=== PATIENT | female | born 1940 | race Caucasian/White ===

== ENCOUNTER → 2017-03-04 | Outpatient (CLI) | payer MEDICARE, OTHER ==
[2016-06-18 09:00] VITALS: BP 130/62
[~2017-03-04] MED LIST: ALBU18HF IH; AMLO10TA4 PO; CIPR500T94 PO; FLUT1DIS IH; FURO-69 PO; GLIM4TAB PO; HYDR-2867 PO; LORA10TA3 PO; LOSA100T6 PO; MONT10TA9 PO; ONDA4TAB10 PO; POTA10TA31 PO; lidocaine patch
--- NOTE | 2017-03-04 16:12 | RAD ---
DATE: 03/04/2017 EXAM: MAMMO JESSIKA SCREENING BILATERAL HISTORY: Asymptomatic screening mammogram. COMPARISON: Mammogram 02/20/2016, 06/21/2014 This study was interpreted with the benefit of Computerized Aided Detection (CAD). The breast parenchyma shows scattered fibroglandular densities. Breast parenchyma level B. FINDINGS: Bilateral CC and MLO views as well as tomosynthesis was performed. No suspicious medical calcifications, masses or areas of architectural distortion. Findings are stable from the prior mammogram. IMPRESSION: Negative bilateral mammogram. BI-RADS CATEGORY: 1 NEGATIVE RECOMMENDED FOLLOW-UP: 12M 12 MONTH FOLLOW-UP PQRS compliance statement: Patient information was entered into a reminder system with a target due date 03/04/2018 for the next mammogram. Mammography is a sensitive method for finding small breast cancers, but it does not detect them all and is not a substitute for careful clinical examination. A negative mammogram does not negate a clinically suspicious finding and should not result in delay in biopsying a clinically suspicious abnormality. "Our facility is accredited by the [employer] Mammography Program."
== END | disposition home or self-care (01) ==
LOC: MAMMO 12:14
PROVIDERS: ATTEND Family Medicine
DX: Z12.31 Encounter for screening mammogram for malignant neoplasm of breast (principal)
CPT/HCPCS: 77063; G0202; 77067

== ENCOUNTER → 2017-06-26 | Outpatient (CLI) | payer MEDICARE, OTHER ==
[2016-06-18 09:00] VITALS: BP 130/62
[~2017-06-26] MED LIST changes: +0.9 % SODIUM CHLORIDE 10 ML VIAL ONE; +DEXAMETHASONE SOD PHOS 4 MG/ML VIAL ONE; +IOHEXOL 300 MG/ML 50 ML VIAL. ONE; +LIDOCAINE 1% PF 30 ML VIAL. ONE
== END | disposition home or self-care (01) ==
LOC: SURG 12:36
PROVIDERS: ATTEND Anesthesiology Pain Medicine
DX: M54.12 Radiculopathy, cervical region (principal); J45.909 Unspecified asthma, uncomplicated; I10 Essential (primary) hypertension; E11.9 Type 2 diabetes mellitus without complications; D64.9 Anemia, unspecified; Z96.653 Presence of artificial knee joint, bilateral; Z87.01 Personal history of pneumonia (recurrent)
CPT/HCPCS: 62321; 82947; J1100; J2001; Q9967

== ENCOUNTER → 2017-07-14 | Outpatient (CLI) | payer MEDICARE, OTHER ==
[2016-06-18 09:00] VITALS: BP 130/62
[~2017-07-14] MED LIST changes: -0.9 % SODIUM CHLORIDE 10 ML VIAL ONE; -DEXAMETHASONE SOD PHOS 4 MG/ML VIAL ONE; -IOHEXOL 300 MG/ML 50 ML VIAL. ONE; -LIDOCAINE 1% PF 30 ML VIAL. ONE
--- NOTE | 2017-07-14 17:57 | RAD ---
EXAM: Left lower extremity venous Doppler sonogram. HISTORY: Swelling. TECHNIQUE: Santos scale and color Doppler sonographic evaluation of the left lower extremity veins with spectral waveform analysis was performed. FINDINGS: There is normal color flow, normal compressibility and there are normal spectral waveforms in the common femoral, superficial femoral, popliteal, posterior tibial and greater saphenous veins. IMPRESSION: No Doppler evidence of lower extremity venous thrombosis. Electronically signed by: Chichi Gonsalez MD (07/14/2017 5:54 PM) [place] [id number]
--- NOTE | 2017-07-14 18:39 | RAD ---
EXAM: Chest, 2 views. HISTORY: Shortness of air. COMPARISON: 08/01/2015 FINDINGS: Frontal and lateral views of the chest are obtained. There is bilateral lower lobe opacity likely due to atelectasis. There is no consolidation, effusion or pneumothorax. There is stable mild enlargement of the cardiac silhouette. There is a left shoulder arthroplasty. There are degenerative changes throughout the thoracic spine. There are cholecystectomy clips. There is minimal anterior wedging of an upper to mid thoracic vertebral body. IMPRESSION: Suspected bilateral lower lobe atelectasis. Electronically signed by: Chichi Gonsalez MD (07/14/2017 6:35 PM) [facility]
== END | disposition home or self-care (01) ==
LOC: US 16:17
PROVIDERS: ATTEND Family Medicine
DX: I51.7 Cardiomegaly (principal); M79.605 Pain in left leg; M79.89 Other specified soft tissue disorders; M47.894 Other spondylosis, thoracic region; Z96.612 Presence of left artificial shoulder joint; Z90.49 Acquired absence of other specified parts of digestive tract
CPT/HCPCS: 71020; 93971

== ENCOUNTER → 2017-07-31 | Outpatient (CLI) | payer MEDICARE, OTHER ==
[2016-06-18 09:00] VITALS: BP 130/62
== END | disposition home or self-care (01) ==
LOC: SURG 14:03
PROVIDERS: ATTEND Anesthesiology Pain Medicine
DX: M54.12 Radiculopathy, cervical region (principal); M54.16 Radiculopathy, lumbar region; M48.02 Spinal stenosis, cervical region; I10 Essential (primary) hypertension; E11.9 Type 2 diabetes mellitus without complications; D64.9 Anemia, unspecified
CPT/HCPCS: 99214

== ENCOUNTER → 2017-08-04 | Outpatient (CLI) | payer MEDICARE, OTHER ==
[2016-06-18 09:00] VITALS: BP 130/62
--- NOTE | 2017-08-04 15:11 | CARD ---
APPROVED REPORT EXAM: Two-dimensional and M-mode echocardiogram with Doppler and color Doppler. Other Information Quality : AverageHR: 79bpm INDICATION Dyspnea 2D DIMENSIONS Left Atrium(2D)4.0 (1.6-4.0cm)IVSd0.9 (0.7-1.1cm) Aortic Root(2D)2.9 (2.0-3.7cm)LVDd5.8 (3.9-5.9cm) LVOT Diameter1.8 (1.8-2.4cm)PWd1.1 (0.7-1.1cm) LVDs4.0 (2.5-4.0cm)FS (%) 31.7 % SV97.4 mlLVEF(%)58.9 (>50%) Aortic Valve AoV Peak Scott.195.7cm/sAoV VTI47.9cm AO Peak GR.15.3mmHgLVOT Peak Scott.171.3cm/s AO Mean GR.8mmHgAVA (VMAX)2.15cm2 Mitral Valve MV E Gbodeymy028.8cm/sMV DECEL DMRL888xi MV A Dnpixsav532.5cm/sE/A Ratio1.2 Pulmonary Valve PV Peak Waymxevx374.8cm/sPV Peak Grad.9mmHg LEFT VENTRICLE The left ventricle is normal size. There is normal left ventricular wall thickness. The left ventricu lar systolic function is normal and the ejection fraction is within normal range. EF 65-70% There is normal LV segmental wall motion. The left ventricular diastolic function and filling is normal for ag e. RIGHT VENTRICLE The right ventricle is normal size. The right ventricular systolic function is normal. ATRIA The left atrium size is normal. The right atrium size is normal. The interatrial septum is intact wit h no evidence for an atrial septal defect or patent foramen ovale as noted on 2-D or Doppler imaging. AORTIC VALVE The aortic valve is thickened but opens well. Doppler and Color Flow revealed no significant aortic r egurgitation. There is no significant aortic valvular stenosis. There is no aortic valvular vegetatio n. MITRAL VALVE The mitral valve is thickened but opens well. There is no evidence of mitral valve prolapse. There is no mitral valve stenosis. Doppler and Color-flow revealed trace mitral regurgitation. TRICUSPID VALVE The tricuspid valve is normal in structure and function. Doppler and Color Flow revealed no tricuspid valve regurgitation noted. There is no tricuspid valve prolapse or vegetation. There is no tricuspid valve stenosis. PULMONIC VALVE The pulmonary valve was not visualized well. Doppler and Color Flow revealed trace pulmonic valvular regurgitation. There is no pulmonic valvular stenosis. GREAT VESSELS The aortic root is normal in size. M-mode revealed an enlarged size and <50% collapse. PERICARDIAL EFFUSION There is no pleural effusion. There is no evidence of significant pericardial effusion. Critical Notification Critical Value: No <Conclusion> The left ventricular systolic function is normal and the ejection fraction is within normal range. EF 65-70% There is normal LV segmental wall motion.
== END | disposition home or self-care (01) ==
LOC: ECHO 13:45
PROVIDERS: ATTEND Family Medicine
DX: I10 Essential (primary) hypertension (principal); I34.0 Nonrheumatic mitral (valve) insufficiency; I37.1 Nonrheumatic pulmonary valve insufficiency
CPT/HCPCS: 93306

== ENCOUNTER → 2017-08-10 | Outpatient (CLI) | payer MEDICARE, OTHER ==
[2016-06-18 09:00] VITALS: BP 130/62
--- NOTE | 2017-08-10 16:56 | RAD ---
Indication: Asthma and cough Technique: PA and lateral views of the chest Comparison: Previous study from 07/14/2017 Findings: Patient is slightly rotated to the right. Heart is mildly enlarged in size. Lungs are hyperinflated. No focal consolidations in the lungs. No pneumothorax or pleural effusion. Status post total left shoulder arthroplasty. Multilevel degenerative disc disease in the thoracic spine. Impression: Findings of COPD. No acute cardiopulmonary process.
== END | disposition home or self-care (01) ==
LOC: RAD 16:33
PROVIDERS: ATTEND Family Medicine
DX: J45.20 Mild intermittent asthma, uncomplicated (principal); J44.9 Chronic obstructive pulmonary disease, unspecified; I51.7 Cardiomegaly; M47.894 Other spondylosis, thoracic region; Z96.612 Presence of left artificial shoulder joint
CPT/HCPCS: 71020

== ENCOUNTER → 2017-08-11 | Outpatient (CLI) | payer MEDICARE, OTHER ==
[2016-06-18 09:00] VITALS: BP 130/62
--- NOTE | 2017-08-11 13:59 | RAD ---
Indication: Shortness of breath for 2 weeks. The patient was administered 9.6 mCi of xenon-133 gas and inspiratory, equilibrium and washout views were obtained over the chest. Next, the patient was administered 5.5 mCi of technetium 99m MAA intravenously and imaging over the chest was performed at multiple obliquities. The ventilation portion of the exam demonstrates fairly homogeneous ventilation of both lungs. No ventilation defects are seen. There appears to be normal washout. The perfusion portion of the exam demonstrates homogeneous perfusion to both lungs. No pleural-based perfusion defects are seen. Impression: Normal ventilation and perfusion lung scan.
== END | disposition home or self-care (01) ==
LOC: NM 12:38
PROVIDERS: ATTEND Family Medicine
DX: J44.9 Chronic obstructive pulmonary disease, unspecified (principal)
CPT/HCPCS: 78582; 96374; A9540; A9558

== ENCOUNTER → 2018-04-07 | Outpatient (CLI) | payer MEDICARE, OTHER ==
[2016-06-18 09:00] VITALS: BP 130/62
--- NOTE | 2018-04-07 14:12 | RAD ---
Bone densitometry 04/07/2018 12:27 PM Indication: OSTEOPENIA Comparison Study: Bone densitometry September 27, 2015.. Discussion: Bone Densitometry was performed with dual photon absorption of the lumbar spine and proximal left femur Lumbar Spine: Bone average density is 1.106g/cm2 for L1-L4. T-Score is -0.6. (Prior T score -0.6) Left femoral neck: Bone average density is 0.739 g/cm2. T-Score is -2.2. (Prior T score -2.3) IMPRESSION: Osteopenia of the left femoral neck and lumbar spine. Bone mineral density in these regions is essentially unchanged from most recent comparison exam Note: Definitions established by the World Health Organization: Normal: T-score is -1.0 or above. Osteopenia: T-score is between -1.0 and -2.5. Osteoporosis: T-score is -2.5 or below. Electronically signed by: Dylan Salvador MD (04/07/2018 2:08 PM) [id number]
== END | disposition home or self-care (01) ==
LOC: DXRAD 12:14
PROVIDERS: ATTEND Family Medicine
DX: M85.89 Other specified disorders of bone density and structure, multiple sites (principal); E11.9 Type 2 diabetes mellitus without complications; E78.5 Hyperlipidemia, unspecified; J44.9 Chronic obstructive pulmonary disease, unspecified; I11.0 Hypertensive heart disease with heart failure; I50.9 Heart failure, unspecified; Z90.49 Acquired absence of other specified parts of digestive tract; Z90.710 Acquired absence of both cervix and uterus; Z88.8 Allergy status to other drugs, medicaments and biological substances; Z88.5 Allergy status to narcotic agent; Z88.6 Allergy status to analgesic agent
CPT/HCPCS: 77080

== ENCOUNTER → 2018-05-19 | Outpatient (CLI) | payer MEDICARE, OTHER ==
[2016-06-18 09:00] VITALS: BP 130/62
[~2018-05-19] MED LIST changes: -LOSA100T6 PO; +LOSA100T7 PO
--- NOTE | 2018-05-20 08:42 | RAD ---
DATE: 05/19/2018 EXAM: DIGITAL SCREEN BILAT W/CAD HISTORY: Screening COMPARISON: 02/20/2016 and 03/04/2017 screening mammography exams This study was interpreted with the benefit of Computerized Aided Detection (CAD ). Breast Density: SCATTERED The breast parenchyma shows scattered fibroglandular densities. Breast parenchyma level B. FINDINGS: Benign calcifications are present. No mass or distortion. No suspicious calcification cluster. Parenchymal distribution is stable. IMPRESSION: BI-RADS CATEGORY: 2 BENIGN FINDING(S) RECOMMENDED FOLLOW-UP: PQRS compliance statement: Patient information was entered into a reminder system with a target due date 1 year for the next mammogram. Mammography is a sensitive method for finding small breast cancers, but it does not detect them all and is not a substitute for careful clinical examination. A negative mammogram does not negate a clinically suspicious finding and should not result in delay in biopsying a clinically suspicious abnormality. "Our facility is accredited by the [employer] Mammography Program." ASAD
== END | disposition home or self-care (01) ==
LOC: MAMMO 13:28
PROVIDERS: ATTEND Family Medicine
DX: Z12.31 Encounter for screening mammogram for malignant neoplasm of breast (principal); I11.0 Hypertensive heart disease with heart failure; I50.32 Chronic diastolic (congestive) heart failure; E11.9 Type 2 diabetes mellitus without complications; E78.5 Hyperlipidemia, unspecified; J44.9 Chronic obstructive pulmonary disease, unspecified; K21.9 Gastro-esophageal reflux disease without esophagitis; Z96.653 Presence of artificial knee joint, bilateral; Z90.710 Acquired absence of both cervix and uterus; Z90.49 Acquired absence of other specified parts of digestive tract; Z88.5 Allergy status to narcotic agent; Z88.6 Allergy status to analgesic agent; Z88.8 Allergy status to other drugs, medicaments and biological substances
CPT/HCPCS: 77067

== ENCOUNTER 2018-08-29 09:27 | Emergency (ER) | payer MEDICARE, OTHER ==
[2016-06-18 09:00] VITALS: BP 130/62
[~2018-08-29] VITALS: Ht 152.4 cm; Wt 86.7 kg
[~2018-08-29 09:27] MED LIST changes: -ALBU18HF IH; +ALBU2.5V8 IH; +LOSA100T14 PO; -LOSA100T7 PO
[2018-08-29] MEDS ORDERED: IPRATRPIUM/ALBUTEROL 0.5/2.5MG 3 ML NEBU. NEB ONE (10:00)
[2018-08-29] MEDS ORDERED: methylPREDNISolone SOD SUCC PF 125 MG/2 ML VIAL. IV ONE (10:00)
[2018-08-29 10:18] LABS: BASO # 0.1 x10^3/uL (0.0-0.2); BASO % 1 % (0-3); EOS # 0.2 x10^3/uL (0.0-0.7); EOS % 3 % (0-3); HEMOGLOBIN 10.7 g/dL (12.0-15.5); LYMPH # 0.9 x10^3/uL (1.0-4.8); LYMPH % 12 % (24-48); MEAN CORPUSCULAR HEMOGLOBIN 27 pg (25-35); MEAN CORPUSCULAR HGB CONC 33 g/dL (31-37); MEAN CORPUSCULAR VOLUME 84 fL (79-100); MONO # 0.8 x10^3/uL (0.0-1.1); MONO % 9 % (0-9); NEUT # 6.1 x10^3uL (1.8-7.7); NEUT % 75 % (31-73); PLATELET COUNT 208 x10^3/uL (140-400); RED BLOOD COUNT 3.93 x10^6/uL (3.50-5.40); WHITE BLOOD COUNT 8.1 x10^3/uL (4.0-11.0)
[2018-08-29 10:36] LABS: ALBUMIN 3.1 g/dL (3.4-5.0); CALCIUM 8.8 mg/dL (8.5-10.1); CREATININE 1.4 mg/dL (0.6-1.0); GFR 36.4; POTASSIUM 3.3 mmol/L (3.5-5.1); TOTAL BILIRUBIN 0.4 mg/dL (0.2-1.0); TOTAL PROTEIN 6.3 g/dL (6.4-8.2)
--- NOTE | 2018-08-29 10:37 | RAD ---
CHEST PA LATERAL History: cough x 4-5 days, hx of asthma. Comparison: August 10, 2017 Heart size: Mildly enlarged, unchanged. Elin/mediastinum: Calcified aorta, appears similar. Lungs: Hyperaeration and appears similar. No consolidating infiltrate. Mild basilar markings are stable, likely fibrosis or atelectasis. No dense airspace consolidation. Pleura: No evidence of pleural effusion. Pneumothorax: None visualized Bones: Degenerative changes of the thoracic spine. Miscellaneous: There has been placement of a dual-lead pacemaker. Impression: Similar appearance as prior study, no consolidating infiltrate. Electronically signed by: Steven Perez MD (08/29/2018 10:32 AM) [facility] [place]
[2018-08-29 10:58] LABS: INFLUENZA A PATIENT NEGATIVE (NEGATIVE); INFLUENZA B PATIENT NEGATIVE (NEGATIVE)
[2018-08-29] MEDS ORDERED: METH4TAB2 PO (11:42)
[2018-08-29] MEDS ORDERED: HYDR115S2 PO (11:42)
--- NOTE | 2018-08-29 11:42 | PHYS DOC ---
Past History Past Medical History: Arthritis, Asthma, Depression, Diabetes, GERD, Hypertension Past Surgical History: Appendectomy, Cholecystectomy, , Hysterectomy, Knee Replacement Alcohol Use: None Drug Use: None Adult General Chief Complaint Chief Complaint: SHORTNESS OF BREATH [facility] HPI Patient is a 77 year old female who presents with cough and shortness of breath. Patient states she had productive cough with yellow sputum that started 5 days ago and seen at urgent care and treated with amoxicillin and Tessalon. Patient states her cough is not productive anymore complains of increasing cough and shortness of breath and unable to sleep. Patient complains of chest soreness and subjective fever without vomiting and diarrhea. Review of Systems Review of Systems Constitutional: Reports subjective fever Eyes: Denies change in visual acuity, redness, or eye pain [] HENT: Reports nasal congestion and sore throat Respiratory: Reports cough and shortness of breath Cardiovascular: No additional information not addressed in HPI [] GI: Denies abdominal pain, nausea, vomiting, bloody stools or diarrhea [] : Denies dysuria or hematuria [] Musculoskeletal: Denies back pain or joint pain [] Integument: Denies rash or skin lesions [] Neurologic: Denies headache, focal weakness or sensory changes [] Endocrine: Denies polyuria or polydipsia [] All other systems were reviewed and found to be within normal limits, except as documented in this note. Current Medications Current Medications Current Medications Medications (Trade) Dose Ordered Sig/[facility] Start Time Stop Time Status Last Admin Dose Admin Albuterol/ Ipratropium (Duoneb) 3 ml 1X ONCE 08/29/18 10:00 08/29/18 10:01 DC 08/29/18 10:03 3 ML Methylprednisolone Sodium Succinate (SOLU-Medrol 125MG VIAL) 125 mg 1X ONCE 08/29/18 10:00 08/29/18 10:01 DC 08/29/18 10:25 125 MG Allergies Allergies Allergies Coded Allergies Type Severity Reaction Last Updated Verified ezetimibe Allergy Severe Itching 06/17/15 No simvastatin Allergy Severe Itching 06/17/15 No felodipine Allergy Intermediate Rash 06/17/15 Yes morphine Allergy Intermediate Swelling 06/17/15 Yes theophylline Allergy Intermediate Rash 06/17/15 Yes nitroglycerin Adverse Reaction Intermediate sensetive to NTG (sweating, increased HR) 08/01/15 No Physical Exam Physical Exam Constitutional: Well developed, well nourished, moderate distress, non-toxic appearance. [] HENT: Normocephalic, atraumatic, bilateral external ears normal, pharyngeal erythema, oropharynx moist, no oral exudates, nose normal. [] Eyes: PERRLA, EOMI, conjunctiva normal, no discharge. [] Neck: Normal range of motion, no tenderness, supple, no stridor. [] Cardiovascular:Heart rate regular rhythm, no murmur [] Lungs & Thorax: Mild respiratory distress with intercostal retraction, diffuse rhonchi.[] Abdomen: Bowel sounds normal, soft, no tenderness, no masses, no pulsatile masses. [] Skin: Warm, dry, no erythema, no rash. [] Back: No tenderness, no CVA tenderness. [] Extremities: No tenderness, no cyanosis, no clubbing, ROM intact, no edema. [] Neurologic: Alert and oriented X 3, normal motor function, normal sensory function, no focal deficits noted. [] Psychologic: Affect normal, judgement normal, mood normal. [] Current Patient Data Vital Signs Vital Signs Date Time Temp Pulse Resp B/P (MAP) Pulse Ox O2 Delivery O2 Flow Rate FiO2 08/29/18 10:05 99 Room Air Lab Results Laboratory Tests Test 08/29/18 10:00 08/29/18 10:25 White Blood Count 8.1 x10^3/uL (4.0-11.0) Red Blood Count 3.93 x10^6/uL (3.50-5.40) Hemoglobin 10.7 g/dL (12.0-15.5) L Hematocrit 33.0 % (36.0-47.0) L Mean Corpuscular Volume 84 fL (79-100) Mean Corpuscular Hemoglobin 27 pg (25-35) Mean Corpuscular Hemoglobin Concent 33 g/dL (31-37) Red Cell Distribution Width 16.0 % (11.5-14.5) H Platelet Count 208 x10^3/uL (140-400) Neutrophils (%) (Auto) 75 % (31-73) H Lymphocytes (%) (Auto) 12 % (24-48) L Monocytes (%) (Auto) 9 % (0-9) Eosinophils (%) (Auto) 3 % (0-3) Basophils (%) (Auto) 1 % (0-3) Neutrophils # (Auto) 6.1 x10^3uL (1.8-7.7) Lymphocytes # (Auto) 0.9 x10^3/uL (1.0-4.8) L Monocytes # (Auto) 0.8 x10^3/uL (0.0-1.1) Eosinophils # (Auto) 0.2 x10^3/uL (0.0-0.7) Basophils # (Auto) 0.1 x10^3/uL (0.0-0.2) Sodium Level 145 mmol/L (136-145) Potassium Level 3.3 mmol/L (3.5-5.1) L Chloride Level 104 mmol/L (98-107) Carbon Dioxide Level 30 mmol/L (21-32) Anion Gap 11 (6-14) Blood Urea Nitrogen 42 mg/dL (7-20) H Creatinine 1.4 mg/dL (0.6-1.0) H Estimated GFR (Cockcroft-Gault) 36.4 BUN/Creatinine Ratio 30 (6-20) H Glucose Level 191 mg/dL (70-99) H Lactic Acid Level 0.9 mmol/L (0.4-2.0) Calcium Level 8.8 mg/dL (8.5-10.1) Total Bilirubin 0.4 mg/dL (0.2-1.0) Aspartate Amino Transferase (AST) 17 U/L (15-37) Alanine Aminotransferase (ALT) 19 U/L (14-59) Alkaline Phosphatase 121 U/L (46-116) H NX-Fqb-Z-Type Natriuretic Peptide 986 pg/mL (0-449) H Total Protein 6.3 g/dL (6.4-8.2) L Albumin 3.1 g/dL (3.4-5.0) L Albumin/Globulin Ratio 1.0 (1.0-1.7) Influenza Type A (Rapid) Negative (NEGATIVE) Influenza Type B (Rapid) Negative (NEGATIVE) EKG EKG H interpreted by me. EKG at 0 942 showed sinus tachycardia at rate of 107, left axis deviation, nonspecific intraventricular block, poor R-wave progress in anterior leads, no acute ST and T-wave abnormalities Radiology/Procedures Radiology/Procedures [address] [address] IMAGING REPORT Signed PATIENT: JOCELYN BECKHAM ACCOUNT: [id number] : 1940 LOCATION: ER AGE: 77 SEX: F EXAM STATUS: REG ER ORD. PHYSICIAN: DENNISE MAGALLANES MD REASON: cough and shortness of breath PROCEDURE: CHEST PA & LATERAL CHEST PA LATERAL History: cough x 4-5 days, hx of asthma. Comparison: August 10, 2017 Heart size: Mildly enlarged, unchanged. Elin/mediastinum: Calcified aorta, appears similar. Lungs: Hyperaeration and appears similar. No consolidating infiltrate. Mild basilar markings are stable, likely fibrosis or atelectasis. No dense airspace consolidation. Pleura: No evidence of pleural effusion. Pneumothorax: None visualized Bones: Degenerative changes of the thoracic spine. Miscellaneous: There has been placement of a dual-lead pacemaker. Impression: Similar appearance as prior study, no consolidating infiltrate. Electronically signed by: Steven Perez MD (08/29/2018 10:32 AM) [facility] DICTATED AND SIGNED BY: STEVEN PEREZ MD DATE: 08/29/18 1026 CC: FANY TAN MD; DENNISE MAGALLANES MD ~ Course & Med Decision Making Course & Med Decision Making Pertinent Labs and Imaging studies reviewed. (See chart for details) Evaluation of patient in ER showed 77-year-old female patient with cough and congestion for 5 days that did not get better with amoxicillin given at urgent care. Patient had moderate cough. Chest x-ray did not show infiltration. Labs was unremarkable except for potassium of 3.3 and mild elevation of BNP. Patient treated with DuoNeb and Solu-Medrol and felt better. Plan discharge patient home with diagnosis of acute bronchitis and prescription of Tussionex. Dragon Disclaimer Dragon Disclaimer This electronic medical record was generated, in whole or in part, using a voice recognition dictation system. Departure Departure: Impression: Primary Impression: Acute bronchitis Additional Impressions: Cough Chronic renal insufficiency Anemia Asthma exacerbation Hypokalemia CHF (congestive heart failure) Disposition: HOME, SELF-CARE (at 1139) Condition: IMPROVED Referrals: FANY TAN MD (PCP) Patient Instructions: Acute Bronchitis, Asthma Attacks, Prevention, Cough, Adult Additional Instructions: Continue antibiotic Follow-up with your primary care physician in 3-5 days Return to ER if not getting better Scripts Hydrocodone/Chlorphen P-Stirex (Tussionex Pennkinetic Susp) 115 Ml Jackelyn.er.12h 5 ML PO BID for cough and congestion, #60 ML Prov: DENNISE MAGALLANES MD 08/29/18 Methylprednisolone (MEDROL) 4 Mg Tab.ds.pk 1 PKG PO UD for inflammation, #1 PKG Prov: DENNISE MAGALLANES MD 08/29/18 Problem Qualifiers DENNISE MAGALLANES MD Aug 29, 2018 11:42
== END 2018-08-29 13:00 | disposition home or self-care (01) ==
LOC: ER 09:27
DX: J20.9 Acute bronchitis, unspecified (principal); I13.0 Hypertensive heart and chronic kidney disease with heart failure and stage 1 through stage 4 chronic kidney disease, or unspecified chronic kidney disease; E11.22 Type 2 diabetes mellitus with diabetic chronic kidney disease; N18.9 Chronic kidney disease, unspecified; I50.9 Heart failure, unspecified; D64.9 Anemia, unspecified; J45.901 Unspecified asthma with (acute) exacerbation; E87.6 Hypokalemia; Z88.8 Allergy status to other drugs, medicaments and biological substances; Z88.5 Allergy status to narcotic agent
CPT/HCPCS: 36415; 71046; 80053; 83605; 83880; 85025; 87804; 93005; 94640; 96374; 99284; J2930; J7620

== ENCOUNTER → 2019-01-05 | Outpatient (CLI) | payer MEDICARE, OTHER ==
[2016-06-18 09:00] VITALS: BP 130/62
[~2019-01-05] MED LIST changes: +HYDR115S2 PO; +METH4TAB2 PO
[2019-01-05 09:40] LABS: ALBUMIN 3.6 g/dL (3.4-5.0); CALCIUM 9.5 mg/dL (8.5-10.1); CREATININE 1.4 mg/dL (0.6-1.0); GFR 36.3; POTASSIUM 3.8 mmol/L (3.5-5.1); TOTAL BILIRUBIN 0.4 mg/dL (0.2-1.0); TOTAL PROTEIN 7.1 g/dL (6.4-8.2)
== END | disposition home or self-care (01) ==
LOC: LAB 09:02
PROVIDERS: ATTEND Internal Medicine Cardiovascular Disease
DX: I10 Essential (primary) hypertension (principal)
CPT/HCPCS: 36415; 80053; 80061; 83880

== ENCOUNTER 2019-02-25 09:33 | Emergency (ER) | payer MEDICARE, OTHER ==
[~2019-02-25] VITALS: Ht 152.4 cm; Wt 86.7 kg
[~2019-02-25 09:33] MED LIST changes: +MONT10TA80 PO; -MONT10TA9 PO
[2019-02-25] MEDS ORDERED: TORS20TA2 PO (10:07)
[2019-02-25] MEDS ORDERED: SUCR1TAB35 PO (10:07)
[2019-02-25] MEDS ORDERED: IV NORMAL SALINE 1,000ML 1,000 ML IV ONE (10:15)
--- NOTE | 2019-02-25 10:18 | PHYS DOC ---
Past History Past Medical History: Arthritis, Asthma, Depression, Diabetes, GERD, Hypertension Past Surgical History: Appendectomy, Cholecystectomy, , Hysterectomy, Knee Replacement Alcohol Use: None Drug Use: None Adult General Chief Complaint Chief Complaint: DIZZY/LIGHT HEADED HPI HPI 78-year-old female presents with dizziness and nausea. This is been intermittent for a bout 5 days. It started last Thursday. Yesterday, she had the most symptoms. She had dizziness that she describes as room spinning sensation as well as a persistent nausea all day. When she sat down and laid her head down for a while the dizziness would improve, but it came and went to the day. Today, she does not have dizziness, but does feel nauseous. She hasn't had episodes of dizziness like this in the past. She talked her PCP who could not see her and advised she come in for evaluation. The patient is very active and on her feet a lot. Her symptoms do get worse after she has been up and moving around too long. She denies shortness of breath, chest pain, diaphoresis, vomiting, diarrhea, abdominal pain. No recent changes in her medications. She has been eating and drinking normally. Review of Systems Review of Systems Constitutional: Denies fever or chills [] Eyes: Denies change in visual acuity, redness, or eye pain [] HENT: Denies nasal congestion or sore throat [] Respiratory: Denies cough or shortness of breath [] Cardiovascular: No additional information not addressed in HPI [] GI: Nausea. Denies abdominal pain, vomiting, bloody stools or diarrhea [] : Denies dysuria or hematuria [] Musculoskeletal: Denies back pain or joint pain [] Integument: Denies rash or skin lesions [] Neurologic: Dizziness. Denies headache, focal weakness or sensory changes [] Endocrine: Denies polyuria or polydipsia [] All other systems were reviewed and found to be within normal limits, except as documented in this note. Current Medications Current Medications Current Medications Medications (Trade) Dose Ordered Sig/[facility] Start Time Stop Time Status Last Admin Dose Admin Meclizine HCl (Antivert) 12.5 mg 1X STAT 02/25/19 10:09 02/25/19 10:10 UNV Ondansetron HCl (Zofran) 4 mg 1X ONCE 02/25/19 10:15 02/25/19 10:16 UNV Sodium Chloride 1,000 ml @ 1,000 mls/hr 1X ONCE 02/25/19 10:15 02/25/19 11:14 Allergies Allergies Allergies Coded Allergies Type Severity Reaction Last Updated Verified ezetimibe Allergy Severe Itching 06/17/15 No simvastatin Allergy Severe Itching 06/17/15 No felodipine Allergy Intermediate Rash 06/17/15 Yes morphine Allergy Intermediate Swelling 06/17/15 Yes theophylline Allergy Intermediate Rash 06/17/15 Yes nitroglycerin Adverse Reaction Intermediate sensetive to NTG (sweating, incre ased HR) 08/01/15 No Physical Exam Physical Exam Constitutional: Well developed, well nourished, no acute distress, non-toxic appearance. [] HENT: Normocephalic, atraumatic, bilateral external ears normal, oropharynx moist, no oral exudates, nose normal. Right tympanic membrane dull, with effusion, no erythema or bulging. Left tympanic membrane normal.[] Eyes: PERRLA, EOMI, conjunctiva normal, no discharge. [] Neck: Normal range of motion, no tenderness, supple, no stridor. [] Cardiovascular:Heart rate regular rhythm, no murmur [] Lungs & Thorax: Bilateral breath sounds clear to auscultation [] Abdomen: Bowel sounds normal, soft, no tenderness, no masses, no pulsatile masses. [] Skin: Warm, dry, no erythema, no rash. [] Back: No tenderness, no CVA tenderness. [] Extremities: No tenderness, no cyanosis, no clubbing, ROM intact, no edema. [] Neurologic: Alert and oriented X 3, normal motor function, normal sensory function, no focal deficits noted. [] Psychologic: Affect normal, judgement normal, mood normal. [] Current Patient Data Vital Signs Vital Signs Date Time Temp Pulse Resp B/P (MAP) Pulse Ox O2 Delivery O2 Flow Rate FiO2 02/25/19 09:57 97.8 94 20 97 Room Air EKG EKG Sinus rhythm, appears paced, rate 73, leftward axis, no ST elevations or depressions, likely pacer spikes.[] Radiology/Procedures Radiology/Procedures [] Course & Med Decision Making Course & Med Decision Making Pertinent Labs and Imaging studies reviewed. (See chart for details) The patient's labs are remarkable for an elevated creatinine and BUN. Creatinine is 1.9. Her baseline in the chart is around 1.4. her EKG is unremarkable. The patient does have a pacemaker. Given the patient 1 L normal saline and 4 mg of Zofran. The patient urinalysis is suggestive of urinary tract infection with large leukocyte esterase and 11-20 white cells. I will treat her with Rocephin in the ED followed by Macrobid for 5 days. The patient feels well enough to go home. I do not see signs of sepsis. She is stable for discharge at this time. [] Dragon Disclaimer Dragon Disclaimer This electronic medical record was generated, in whole or in part, using a voice recognition dictation system. Departure Departure: Impression: Primary Impression: UTI (urinary tract infection) Disposition: 01 HOME, SELF-CARE Condition: STABLE Referrals: FANY TAN MD (PCP) Patient Instructions: Urinary Tract Infection, [id number] Scripts Nitrofurantoin Monohyd/M-Cryst (MACROBID 100 MG CAPSULE) 100 Mg Capsule 1 CAP PO BID for UTI, #10 CAP Prov: JENNY ROTH DO 02/25/19 Problem Qualifiers Primary Impression: UTI (urinary tract infection) Urinary tract infection type: acute cystitis Hematuria presence: with hematuria Qualified Codes: N30.01 - Acute cystitis with hematuria JENNY ROTH DO Feb 25, 2019 10:18
--- NOTE | 2019-02-25 10:27 | EKG ---
[address] [address] Test Date: 2019-02-25 Test Time: 10:19:22 Pat Name: JOCELYN BECKHAM Department: Room: Gender: F Digital Marketing Assistant: : 1940 Requested By: JENNY ROTH Order Number: [id number] Reading MD: Measurements Intervals [place] Rate: 73 P: 0 [place]: 262 QRS: -69 QRSD: 164 T: 75 QT: 448 QTc: 498 Interpretive Statements SINUS RHYTHM PROLONGED [place] INTERVAL ABNORMAL LEFT AXIS DEVIATION NON SPECIFIC INTRAVENTRICULAR BLOCK QRS(T) CONTOUR ABNORMALITY CONSIDER INFERIOR INFARCT ABNORMAL ECG RI6.01 No previous ECG available for comparison
[2019-02-25] MEDS ORDERED: MECLIZINE 12.5 MG TABLET. PO ONE (10:30)
[2019-02-25] MEDS ORDERED: ONDANSETRON PF 4 MG/2 ML VIAL. IV ONE (10:30)
[2019-02-25 10:57] LABS: BASO % 1 % (0-3); EOS # 0.2 x10^3/uL (0.0-0.7); EOS % 3 % (0-3); HEMATOCRIT 36.3 % (36.0-47.0); HEMOGLOBIN 11.9 g/dL (12.0-15.5); LYMPH # 1.1 x10^3/uL (1.0-4.8); LYMPH % 16 % (24-48); MEAN CORPUSCULAR HEMOGLOBIN 28 pg (25-35); MEAN CORPUSCULAR HGB CONC 33 g/dL (31-37); MEAN CORPUSCULAR VOLUME 85 fL (79-100); MONO # 0.7 x10^3/uL (0.0-1.1); MONO % 10 % (0-9); NEUT # 5.1 x10^3uL (1.8-7.7); NEUT % 71 % (31-73); PLATELET COUNT 183 x10^3/uL (140-400); RED BLOOD COUNT 4.26 x10^6/uL (3.50-5.40); RED CELL DISTRIBUTION WIDTH 16.2 % (11.5-14.5); WHITE BLOOD COUNT 7.2 x10^3/uL (4.0-11.0)
[2019-02-25 11:03] LABS: ALBUMIN 3.6 g/dL (3.4-5.0); ALBUMIN/GLOBULIN RATIO 1.1 (1.0-1.7); CALCIUM 9.7 mg/dL (8.5-10.1); CREATININE 1.9 mg/dL (0.6-1.0); GFR 25.5; POTASSIUM 3.9 mmol/L (3.5-5.1); TOTAL BILIRUBIN 0.6 mg/dL (0.2-1.0); TOTAL PROTEIN 6.9 g/dL (6.4-8.2)
[2019-02-25 11:46] LABS: BILIRUBIN,URINE NEG (NEG); CLARITY,URINE HAZY; COLOR,URINE YELLOW; GLUCOSE,URINE NEG (NEG); NITRITE,URINE NEG (NEG); RBC,URINE RARE /HPF (0-2); UROBILINOGEN,URINE 0.2 mg/dL (0.2 mg/dL)
[2019-02-25 11:47] LABS: BACTERIA,URINE FEW /HPF (0-FEW); HYALINE CASTS, URINE OCC /HPF; SQUAMOUS EPITHELIAL CELL,UR MOD /LPF
[2019-02-25] MEDS ORDERED: NITR100C62 PO (11:57)
[2019-02-25] MEDS ORDERED: IV NORMAL SALINE 50ML 50 ML ONE (12:04)
[2019-02-25] MEDS ORDERED: cefTRIAXone SODIUM 1 GM VIAL ONE (12:04)
[2019-02-25 12:54] VITALS: BP 132/68
== END 2019-02-25 12:54 | disposition home or self-care (01) ==
LOC: ER 09:33
DX: N30.01 Acute cystitis with hematuria (principal); R42 Dizziness and giddiness; M19.90 Unspecified osteoarthritis, unspecified site; J45.909 Unspecified asthma, uncomplicated; F32.9 Major depressive disorder, single episode, unspecified; E11.9 Type 2 diabetes mellitus without complications; K21.9 Gastro-esophageal reflux disease without esophagitis; I10 Essential (primary) hypertension; Z95.0 Presence of cardiac pacemaker; Z88.5 Allergy status to narcotic agent; Z88.8 Allergy status to other drugs, medicaments and biological substances
CPT/HCPCS: 36415; 80053; 81001; 84484; 85025; 87086; 93005; 96361; 96365; 96375; 99285; J0696; J2405; J8597; J7030

== ENCOUNTER 2019-05-26 08:39 | Inpatient (IN) | payer MEDICARE, OTHER ==
[~2019-05-26] VITALS: Ht 152.4 cm; Wt 83.5 kg
[~2019-05-26 08:39] MED LIST changes: +NITR100C62 PO; +SUCR1TAB35 PO; +TORS20TA2 PO
[2019-05-26] MEDS ORDERED: IPRATRPIUM/ALBUTEROL 0.5/2.5MG 3 ML NEBU. NEB ONE (09:00)
--- NOTE | 2019-05-26 09:06 | PHYS DOC ---
Past History Past Medical History: Arthritis, Asthma, Depression, Diabetes, GERD, Hypertension Past Surgical History: Appendectomy, Cholecystectomy, , Hysterectomy, Knee Replacement Alcohol Use: None Drug Use: None Adult General Chief Complaint Chief Complaint: MULTIPLE COMPLAINTS HPI HPI Patient is a 78-year-old female presenting with multiple complaints she's had a cough for 3 week she was on a trip she had her seasonal allergies get exacerbated she has a history of asthma she just has not been able to get the cough under control despite nebulizer treatment at home. Patient also has been older more confused apparently she said she's been mixing up days and nights last night she tried to go to the bathroom and she fell down she was coughing so much she just got mixed up fell down bumping her right hip no head trauma no balbir st pain other than the rib pain with coughing that she tells me about sharp Review of Systems Review of Systems Constitutional: Denies fever or chills []feeling hot and cold at times Eyes: Denies change in visual acuity, redness, or eye pain [] Musculoskeletal: Denies back pain or joint pain [] Integument: Denies rash or skin lesions [] Neurologic: Denies headache, focal weakness or sensory changes [] Endocrine: Denies polyuria or polydipsia [] All other systems were reviewed and found to be within normal limits, except as documented in this note. Current Medications Current Medications Current Medications Medications (Trade) Dose Ordered Sig/Riley Start Time Stop Time Status Last Admin Dose Admin Albuterol/ Ipratropium (Duoneb) 3 ml 1X ONCE 05/26/19 09:00 05/26/19 09:01 DC Prednisone (Prednisone) 50 mg 1X ONCE 05/26/19 09:30 05/26/19 09:31 Allergies Allergies Allergies Coded Allergies Type Severity Reaction Last Updated Verified ezetimibe Allergy Severe Itching 06/17/15 No simvastatin Allergy Severe Itching 06/17/15 No felodipine Allergy Intermediate Rash 06/17/15 Yes morphine Allergy Intermediate Swelling 06/17/15 Yes theophylline Allergy Intermediate Rash 06/17/15 Yes nitroglycerin Adverse Reaction Intermediate sensetive to NTG (sweating, increased HR) 08/01/15 No Physical Exam Physical Exam Constitutional: Well developed, well nourished, no acute distress, non-toxic appearance. [] HENT: Normocephalic, atraumatic, bilateral external ears normal, oropharynx moist, no oral exudates, nose normal. [] Eyes: PERRLA, EOMI, conjunctiva normal, no discharge. [] Neck: Normal range of motion, no tenderness, supple, no stridor. [] Cardiovascular:Heart rate regular rhythm, no murmur [] Lungs & Thorax: Faint wheezing and reactive cough frequent reactive cough noted Abdomen: Bowel sounds normal, soft, no tenderness, no masses, no pulsatile masses. [] Skin: Warm, dry, no erythema, no rash. [] Back: No tenderness, no CVA tenderness. [] Extremities small ecchymosis on the right thigh right tamayo area as well range of motion of the right hip is intact as well as the right knee Neurologic: Alert and oriented X 3, normal motor function, normal sensory function, no focal deficits noted. [] Psychologic: Affect normal, judgement normal, mood normal. [] Current Patient Data Vital Signs Vital Signs Date Time Temp Pulse Resp B/P (MAP) Pulse Ox O2 Delivery O2 Flow Rate FiO2 05/26/19 08:40 98.9 80 20 96 Room Air EKG EKG [] Radiology/Procedures Radiology/Procedures [] Impressions: IMPRESSION: 1. Stable diffuse increased interstitial opacity due to interstitial infiltrate or chronic interstitial changes. 2. Stable cardiomegaly. Electronically signed by: Chichi Rivera MD (05/26/2019 9:26 AM) [place] [id number] DICTATED AND SIGNED BY: CHICHI RIVERA MD DATE: 05/26/1926 CC: FANY TAN MD; MELE DAVIES MD ~ Course & Med Decision Making Course & Med Decision Making Pertinent Labs and Imaging studies reviewed. (See chart for details) []NOTED LEUKOCYTOSIS MILD BUMP IN CREATININE. HAS PNA ON CXR. BP AND OXYGENATION IS OKAY. D/W CLAUDE ADMIT DUE TO PT LEUKOCYTOSIS, HAS BEEN WEAK. HIP XRAY NEG ACUTE LACTIC PENDING Dragon Disclaimer Dragon Disclaimer This electronic medical record was generated, in whole or in part, using a voice recognition dictation system. Departure Departure: Impression: Primary Impression: Pneumonia Disposition: ADMITTED INPATIENT Admitting Physician: Nehemiah David Condition: STABLE Referrals: FANY TAN MD (PCP) MELE DAVIES MD May 26, 2019 09:06
[2019-05-26 09:19] LABS: BASO # 0.1 x10^3/uL (0.0-0.2); BASO % 1 % (0-3); EOS % 0 % (0-3); HEMATOCRIT 32.6 % (36.0-47.0); HEMOGLOBIN 10.5 g/dL (12.0-15.5); LYMPH # 1.2 x10^3/uL (1.0-4.8); LYMPH % 7 % (24-48); MEAN CORPUSCULAR HEMOGLOBIN 28 pg (25-35); MEAN CORPUSCULAR HGB CONC 32 g/dL (31-37); MEAN CORPUSCULAR VOLUME 87 fL (79-100); MONO % 6 % (0-9); NEUT # 15.4 x10^3uL (1.8-7.7); NEUT % 87 % (31-73); PLATELET COUNT 209 x10^3/uL (140-400); RED BLOOD COUNT 3.73 x10^6/uL (3.50-5.40); RED CELL DISTRIBUTION WIDTH 16.5 % (11.5-14.5); WHITE BLOOD COUNT 17.7 x10^3/uL (4.0-11.0)
--- NOTE | 2019-05-26 09:28 | RAD ---
EXAM: Right hip and pelvis, 3 views. HISTORY: Fall. COMPARISON: None. FINDINGS: A frontal view of the pelvis and 2 views of the right hip are obtained. There is no fracture, dislocation or subluxation. There is degenerative change at the lumbosacral junction. IMPRESSION: No acute osseous finding. Electronically signed by: Chichi Gonsalez MD (05/26/2019 9:25 AM) [facility]
--- NOTE | 2019-05-26 09:29 | RAD ---
EXAM: Chest, 2 views. HISTORY: Cough. COMPARISON: 08/29/2018. FINDINGS: 2 views of the chest are obtained. There is stable diffuse increased interstitial opacity. There is no consolidation, pleural effusion or pneumothorax. There is a stable enlarged cardiac silhouette. There is a cardiac pacemaker with leads in expected position. There is a left shoulder arthroplasty. There are healed rib fractures. IMPRESSION: 1. Stable diffuse increased interstitial opacity due to interstitial infiltrate or chronic interstitial changes. 2. Stable cardiomegaly. Electronically signed by: Chichi Gonsalez MD (05/26/2019 9:26 AM) [facility]
[2019-05-26] MEDS ORDERED: predniSONE 10 MG TABLET PO ONE (09:30)
[2019-05-26 09:33] LABS: ALBUMIN 2.9 g/dL (3.4-5.0); ALBUMIN/GLOBULIN RATIO 0.7 (1.0-1.7); CALCIUM 9.1 mg/dL (8.5-10.1); CREATININE 2.3 mg/dL (0.6-1.0); GFR 20.5; POTASSIUM 3.6 mmol/L (3.5-5.1); TOTAL BILIRUBIN 0.7 mg/dL (0.2-1.0); TOTAL PROTEIN 7.1 g/dL (6.4-8.2)
[2019-05-26 09:49] LABS: % BANDS 11 % (0-9); % BASOS 0 % (0-3); % EOS 0 % (0-5); % LYMPHS 9 % (24-48); % MONOS 9 % (0-10); % SEGS 71 % (35-66)
[2019-05-26 09:50] LABS: ANISOCYTOSIS PRESENT; MICROCYTOSIS PRESENT; PLT ESTIMATE ADEQUATE (ADEQUATE)
[2019-05-26] MEDS ORDERED: IV NORMAL SALINE 1,000ML 1,000 ML IV SCH (10:02)
[2019-05-26] MEDS ORDERED: IV NORMAL SALINE 500ML 500 ML IV ONE (10:15)
[2019-05-26] MEDS ORDERED: IV NORMAL SALINE 50ML 50 ML ONE (10:16)
[2019-05-26] MEDS ORDERED: IV DEXTROSE 5% 100 ML IV ONE (10:16)
[2019-05-26] MEDS ORDERED: cefTRIAXone SODIUM 1 GM VIAL ONE (10:16)
[2019-05-26] MEDS ORDERED: DOXYCYCLINE HYCLATE 100 MG VIAL IV ONE (10:16)
[2019-05-26] MEDS ORDERED: DOXYCYCLINE HYCLATE 100 MG in IV DEXTROSE 5% 100 ML IV ONE (10:30)
[2019-05-26 11:23] LABS: BILIRUBIN,URINE NEG (NEG); CLARITY,URINE HAZY; COLOR,URINE YELLOW; GLUCOSE,URINE NEG (NEG)
[2019-05-26 11:25] LABS: AMORPHOUS SEDIMENT,UR PRESENT /HPF; BACTERIA,URINE MOD /HPF (0-FEW); HYALINE CASTS, URINE MANY /HPF; NITRITE,URINE NEG (NEG); SQUAMOUS EPITHELIAL CELL,UR MOD /LPF; UROBILINOGEN,URINE 1 mg/dL (0.2 mg/dL)
[2019-05-26] MEDS: IPRATRPIUM/ALBUTEROL 0.5/2.5MG 3 ML NEBU. NEB SCH ×3 (12:00→20:18)
[2019-05-26 12:40] VITALS: BP 135/54
[2019-05-26] MEDS ORDERED: CHOL10003 PO (13:19)
[2019-05-26] MEDS ORDERED: ALOS0.5T PO (13:19)
[2019-05-26] MEDS ORDERED: LACT1CAP6 PO (13:19)
[2019-05-26] MEDS ORDERED: ALLO100T PO (13:19)
[2019-05-26] MEDS ORDERED: LOSA100T2 PO (13:19)
[2019-05-26] MEDS ORDERED: DICL100G18 TP (13:19)
[2019-05-26] MEDS ORDERED: CELE100C PO (13:19)
[2019-05-26] MEDS ORDERED: ESOM40CA PO (13:19)
[2019-05-26] MEDS ORDERED: FLUT1DIS3 IH (13:19)
[2019-05-26] MEDS ORDERED: MULT1TAB52 PO (13:19)
--- NOTE | 2019-05-26 13:41 | RAD ---
Axial CT images of the head were obtained without IV contrast. Comparison: None. Indication: Concussion. Findings: No mass effect or hemorrhage is seen. The ventricles are not enlarged or effaced. No midline shift is noted. There is no intra or extra axial fluid collection. There is calcification of the internal carotid arteries at the level of the siphon. No bony or soft tissue abnormality is seen. The visualized paranasal sinuses are clear. Impression: 1. No acute intracranial process seen on non- contrast head CT. Electronically signed by: Stephen Guevara MD (05/26/2019 1:38 PM) [facility]
[2019-05-26] MEDS: ENOXAPARIN 30 MG/0.3 ML SYRINGE. SQ SCH (15:18)
[2019-05-26 15:25] VITALS: BP 119/53
[2019-05-26] MEDS ORDERED: DEXTROSE 50% 25 GM / 50ML DISP.SYRIN. IV PRN ×2 (16:45→20:45)
[2019-05-26] MEDS ORDERED: INSULIN LISPRO 300 UNITS/3 ML VIAL. SQ SCH ×2 (17:00→21:00)
[2019-05-26] MEDS ORDERED: ALBU2.5V8 IH (17:52)
[2019-05-26] MEDS ORDERED: DICLOFENAC SODIUM 1% TOPICAL GEL 100GM TUBE. TP PRN (18:00)
[2019-05-26] MEDS ORDERED: SUCRALFATE 1 GM TABLET. PO PRN (18:00)
[2019-05-26] MEDS ORDERED: CELECOXIB 100 MG CAPSULE PO PRN (18:00)
[2019-05-26] MEDS ORDERED: LIDOCAINE (700MG/PATCH) PATCH. TD PRN (18:30)
[2019-05-26 19:17] VITALS: BP 113/62
[2019-05-26] MEDS: MONTELUKAST 10 MG TABLET. PO SCH (21:47)
[2019-05-26] MEDS: DOXYCYCLINE HYCLATE 100 MG TABLET PO SCH (21:47)
[2019-05-26] MEDS: amLODIPine BESYLATE 10 MG TABLET PO SCH (21:47)
[2019-05-26] MEDS ORDERED: prednisoLONE ACETATE 1% OPHTH SUSPENSION 5ML BOTTLE. OU ONE (22:00)
[2019-05-26] MEDS: guaiFENesin DM 200MG/20MG 10 ML SYRUP PO PRN (22:05)
[2019-05-26] MEDS: INSULIN LISPRO 300 UNITS/3 ML VIAL. SQ SCH (22:18)
[2019-05-26 22:44] LABS: COLOR,URINE YELLOW
[2019-05-26 22:45] LABS: BACTERIA,URINE FEW /HPF (0-FEW); BILIRUBIN,URINE NEG (NEG); CLARITY,URINE HAZY; GLUCOSE,URINE NEG (NEG); NITRITE,URINE NEG (NEG); SQUAMOUS EPITHELIAL CELL,UR OCC /LPF; UROBILINOGEN,URINE 0.2 mg/dL (0.2 mg/dL)
[2019-05-26] MEDS: ZOLPIDEM 5 MG TABLET. PO PRN (22:56)
[2019-05-26 23:47] VITALS: BP 108/60
[2019-05-27] MEDS ORDERED: Influenza vaccine per PROTOCOL. MC PRN (03:00)
[2019-05-27] MEDS: guaiFENesin DM 200MG/20MG 10 ML SYRUP PO PRN (04:16)
[2019-05-27] MEDS: IPRATRPIUM/ALBUTEROL 0.5/2.5MG 3 ML NEBU. NEB SCH ×4 (05:18→21:00)
[2019-05-27 05:58] VITALS: BP 117/50
[2019-05-27 06:21] LABS: CALCIUM 9.1 mg/dL (8.5-10.1); CREATININE 1.8 mg/dL (0.6-1.0); GFR 27.1; POTASSIUM 3.1 mmol/L (3.5-5.1)
[2019-05-27 06:45] LABS: BASO % 0 % (0-3); EOS % 0 % (0-3); HEMATOCRIT 30.4 % (36.0-47.0); HEMOGLOBIN 9.7 g/dL (12.0-15.5); LYMPH # 1.7 x10^3/uL (1.0-4.8); LYMPH % 10 % (24-48); MEAN CORPUSCULAR HEMOGLOBIN 28 pg (25-35); MEAN CORPUSCULAR HGB CONC 32 g/dL (31-37); MEAN CORPUSCULAR VOLUME 87 fL (79-100); MONO # 0.8 x10^3/uL (0.0-1.1); MONO % 5 % (0-9); NEUT # 15.3 x10^3uL (1.8-7.7); NEUT % 86 % (31-73); PLATELET COUNT 203 x10^3/uL (140-400); RED BLOOD COUNT 3.52 x10^6/uL (3.50-5.40); RED CELL DISTRIBUTION WIDTH 16.4 % (11.5-14.5); WHITE BLOOD COUNT 17.8 x10^3/uL (4.0-11.0)
[2019-05-27] MEDS ORDERED: PANTOPRAZOLE 40 MG TABLET. PO PRN (07:30)
[2019-05-27] MEDS ORDERED: ELECTROLYTE (NON-ICU) PROTOCOL MC PRN ×2 (08:45→22:00)
[2019-05-27] MEDS: MULTIVITAMIN with MINERAL TABLET. PO SCH (09:00)
[2019-05-27] MEDS ORDERED: methylPREDNISolone SOD SUCC PF 40 MG/ML VIAL. IV SCH (09:00)
[2019-05-27] MEDS: amLODIPine BESYLATE 10 MG TABLET PO SCH ×2 (09:00→20:52)
[2019-05-27] MEDS ORDERED: FLU VAX QS 2019-20 (36MOS+)/PF 0.5 ML SYRINGE. VAX IM ONE ×2 (09:00→10:00)
[2019-05-27] MEDS: CHOLECALCIFEROL (VITAMIN D3) 1,000 UNIT TABLET PO SCH (09:00)
[2019-05-27] MEDS: DOXYCYCLINE HYCLATE 100 MG TABLET PO SCH ×2 (09:18→20:52)
[2019-05-27] MEDS: CETIRIZINE HCL 10 MG TABLET PO SCH (09:20)
[2019-05-27] MEDS: GLIMEPIRIDE 2 MG TABLET PO SCH (09:20)
[2019-05-27] MEDS: ALLOPURINOL 100 MG TABLET. PO SCH (09:21)
[2019-05-27] MEDS: LOSARTAN 50 MG TABLET. PO SCH (09:21)
[2019-05-27] MEDS: LACTOBACILLUS RHAMNOSUS GG 1 CAPSULE. PO SCH ×2 (09:21→20:51)
[2019-05-27] MEDS: INSULIN LISPRO 300 UNITS/3 ML VIAL. SQ SCH ×4 (09:40→20:50)
[2019-05-27] MEDS ORDERED: POTASSIUM CHLORIDE 20 MEQ TABLET.ER. PO ONE (10:00)
[2019-05-27] MEDS: prednisoLONE ACETATE 1% OPHTH SUSPENSION 5ML BOTTLE. OS SCH ×2 (10:08→20:51)
[2019-05-27] MEDS: BENZONATATE 100 MG CAPSULE. PO SCH ×3 (10:09→21:20)
[2019-05-27 11:25] VITALS: BP 123/54
[2019-05-27] MEDS: ENOXAPARIN 30 MG/0.3 ML SYRINGE. SQ SCH (12:54)
[2019-05-27 16:07] VITALS: BP 101/55
[2019-05-27 19:15] VITALS: BP 135/75
[2019-05-27] MEDS: MONTELUKAST 10 MG TABLET. PO SCH (20:52)
[2019-05-27] MEDS ORDERED: PANTOPRAZOLE 40 MG TABLET. PO SCH (21:15)
[2019-05-27] MEDS: ZOLPIDEM 5 MG TABLET. PO PRN (23:07)
[2019-05-27 23:37] VITALS: BP 119/73
[2019-05-28] MEDS: guaiFENesin DM 200MG/20MG 10 ML SYRUP PO PRN ×2 (02:00→15:35)
[2019-05-28] MEDS ORDERED: ALBUTEROL SULFATE 2.5 MG/3 ML NEBU. NEB ONE (02:15)
--- NOTE | 2019-05-28 04:58 | PN ---
DATE: 05/27/2019 SUBJECTIVE: A 78-year-old female in with acute exacerbation of chronic obstructive pulmonary disease, asthma, bronchospasm. The patient says she is feeling somewhat better today, breathing little bit easier, still having a nagging cough. Robitussin-DM and Tessalon Perles not seem to be helping her. Other than that, she denies shortness of breath or chest pain. OBJECTIVE: VITAL SIGNS: Blood pressure 135/75, respiration 18, pulse 87, afebrile. GENERAL: The patient is delightful. LUNGS: Diminished with a few expiratory wheezes, but markedly improved. CARDIOVASCULAR: Regular sinus rhythm, S1, S2. ABDOMEN: Soft, protuberant, nontender. EXTREMITIES: No clubbing, cyanosis, no edema per se. A small ecchymosis on the right thigh, otherwise unremarkable. The patient continues to make good progress. She does have an elevated white count, but that may be related to the prednisone and she seems to be doing somewhat better as noted in all those regards. We will continue with present drug regimen, add some Protonix in case she is having some reflux and continue with antibiotic therapy alike. IMPRESSION: Acute on chronic bronchospasm, acute exacerbation of asthma, acute bronchitis, possible pneumonitis, degenerative arthritis, type 2 diabetes, leukocytosis, anemia of chronic disease, chronic kidney disease stage 3, elevated procalcitonin. 1. Hypokalemia. We will recheck her labs in the morning and make further evaluation on her breathing situation with her bronchospasm and continue to make further adjustments as indicated. MANOHAR ARCE MD DR: TAMMY/lisette JOB#: [id number] / [id number]
[2019-05-28] MEDS ORDERED: IPRATRPIUM/ALBUTEROL 0.5/2.5MG 3 ML NEBU. NEB SCH (05:45)
[2019-05-28] MEDS ORDERED: HYDROcodone/CHLORPHEN POLIS 5 ML SUS.ER.12H PO ONE (05:45)
[2019-05-28] MEDS ORDERED: POTASSIUM CHLORIDE 20 MEQ TABLET.ER. PO ONE (05:45)
[2019-05-28] MEDS ORDERED: FUROSEMIDE 40 MG TABLET PO ONE (06:00)
[2019-05-28] MEDS: methylPREDNISolone SOD SUCC PF 40 MG/ML VIAL. IV SCH ×3 (06:08→21:21)
[2019-05-28] MEDS ORDERED: ALBUTEROL SULFATE 2.5 MG/3 ML NEBU. NEB PRN (06:45)
[2019-05-28 06:52] VITALS: BP 142/52
[2019-05-28 07:11] LABS: BASO % 0 % (0-3); EOS % 0 % (0-3); HEMATOCRIT 29.6 % (36.0-47.0); HEMOGLOBIN 9.4 g/dL (12.0-15.5); LYMPH # 1.2 x10^3/uL (1.0-4.8); LYMPH % 6 % (24-48); MEAN CORPUSCULAR HEMOGLOBIN 27 pg (25-35); MEAN CORPUSCULAR HGB CONC 32 g/dL (31-37); MEAN CORPUSCULAR VOLUME 86 fL (79-100); MONO % 5 % (0-9); NEUT # 17.2 x10^3uL (1.8-7.7); NEUT % 89 % (31-73); PLATELET COUNT 246 x10^3/uL (140-400); RED BLOOD COUNT 3.44 x10^6/uL (3.50-5.40); RED CELL DISTRIBUTION WIDTH 16.4 % (11.5-14.5); WHITE BLOOD COUNT 19.4 x10^3/uL (4.0-11.0)
[2019-05-28 07:24] LABS: CALCIUM 9.3 mg/dL (8.5-10.1); POTASSIUM 3.6 mmol/L (3.5-5.1)
[2019-05-28] MEDS: IPRATRPIUM/ALBUTEROL 0.5/2.5MG 3 ML NEBU. NEB SCH ×4 (08:00→20:28)
[2019-05-28] MEDS: INSULIN LISPRO 300 UNITS/3 ML VIAL. SQ SCH ×4 (08:20→21:25)
[2019-05-28] MEDS: GLIMEPIRIDE 2 MG TABLET PO SCH (09:45)
[2019-05-28] MEDS: LOSARTAN 50 MG TABLET. PO SCH (09:46)
[2019-05-28] MEDS: amLODIPine BESYLATE 10 MG TABLET PO SCH ×2 (09:47→21:20)
[2019-05-28] MEDS: LACTOBACILLUS RHAMNOSUS GG 1 CAPSULE. PO SCH ×2 (09:47→21:18)
[2019-05-28] MEDS: BENZONATATE 100 MG CAPSULE. PO SCH ×3 (09:49→21:19)
[2019-05-28] MEDS: MULTIVITAMIN with MINERAL TABLET. PO SCH (09:49)
[2019-05-28] MEDS: ALLOPURINOL 100 MG TABLET. PO SCH (09:50)
[2019-05-28] MEDS: CETIRIZINE HCL 10 MG TABLET PO SCH (09:50)
[2019-05-28] MEDS: CHOLECALCIFEROL (VITAMIN D3) 1,000 UNIT TABLET PO SCH (09:51)
[2019-05-28] MEDS: DOXYCYCLINE HYCLATE 100 MG TABLET PO SCH ×2 (09:51→21:19)
[2019-05-28] MEDS: prednisoLONE ACETATE 1% OPHTH SUSPENSION 5ML BOTTLE. OS SCH ×2 (09:59→21:18)
[2019-05-28] MEDS: FUROSEMIDE 40 MG TABLET PO SCH (10:34)
[2019-05-28 11:06] VITALS: BP 125/64
[2019-05-28] MEDS: ENOXAPARIN 30 MG/0.3 ML SYRINGE. SQ SCH (14:00)
[2019-05-28 15:38] VITALS: BP 124/65
[2019-05-28 19:01] VITALS: BP 126/64
[2019-05-28] MEDS: MONTELUKAST 10 MG TABLET. PO SCH (21:19)
[2019-05-28] MEDS: HYDROcodone/CHLORPHEN POLIS 5 ML SUS.ER.12H PO PRN (21:22)
[2019-05-28 22:06] LABS: CALCIUM 9.5 mg/dL (8.5-10.1); CREATININE 2.1 mg/dL (0.6-1.0); GFR 22.7; POTASSIUM 4.5 mmol/L (3.5-5.1)
[2019-05-28 23:00] VITALS: BP 105/54
[2019-05-29] MEDS: guaiFENesin DM 200MG/20MG 10 ML SYRUP PO PRN (00:56)
[2019-05-29 05:00] VITALS: BP 150/71
[2019-05-29] MEDS: IPRATRPIUM/ALBUTEROL 0.5/2.5MG 3 ML NEBU. NEB SCH ×4 (05:12→20:21)
--- NOTE | 2019-05-29 05:23 | PN ---
DATE: 05/28/2019 SUBJECTIVE: This 78-year-old female came in with exacerbation of chronic obstructive pulmonary disease with asthma and bronchospasm, doing somewhat better. I placed her on Tussionex to help her with her breathing and that is with her coughing. She said she was having significant coughing spasms and as a result of this was unable to sleep, so we had switched her from the Robitussin-DM to the Tussionex and she said she had some good rest with that. Otherwise, she is still somewhat short of breath, but markedly improved. OBJECTIVE: VITAL SIGNS: Blood pressure 126/64, respiration 18, pulse 83, afebrile. GENERAL: The patient is alert and oriented. LUNGS: Diminished throughout, but better movement of air that she has had occasional wheeze, but much improved. CARDIOVASCULAR: Regular sinus rhythm. ABDOMEN: Soft, protuberant, nontender. No rebound or guarding. Positive bowel sounds. EXTREMITIES: No clubbing, cyanosis, +1 to 2 pitting edema. She is back on her Lasix. We will watch her fluid intake, make further evaluation on that. She reports no signs of dyspnea or the like. LABORATORY DATA: Otherwise, the patient's white count still elevated at 19,000, may be related to the steroids being used. Her sodium is ____, BUN and creatinine of 88 and 2.1. IMPRESSION: Noted above, acute exacerbation of chronic obstructive pulmonary disease, acute bronchospasm, leukocytosis, type 2 diabetes and chronic kidney disease, stage 4. MANOHAR ARCE MD DR: TAMMY/lisette JOB#: [id number] / [id number]
[2019-05-29] MEDS: methylPREDNISolone SOD SUCC PF 40 MG/ML VIAL. IV SCH ×3 (06:09→20:43)
[2019-05-29 07:06] LABS: BASO % 0 % (0-3); EOS % 0 % (0-3); HEMATOCRIT 29.6 % (36.0-47.0); HEMOGLOBIN 9.4 g/dL (12.0-15.5); LYMPH # 0.7 x10^3/uL (1.0-4.8); LYMPH % 4 % (24-48); MEAN CORPUSCULAR HEMOGLOBIN 27 pg (25-35); MEAN CORPUSCULAR HGB CONC 32 g/dL (31-37); MEAN CORPUSCULAR VOLUME 86 fL (79-100); MONO # 0.4 x10^3/uL (0.0-1.1); MONO % 2 % (0-9); NEUT # 15.9 x10^3uL (1.8-7.7); NEUT % 93 % (31-73); PLATELET COUNT 247 x10^3/uL (140-400); RED BLOOD COUNT 3.44 x10^6/uL (3.50-5.40); RED CELL DISTRIBUTION WIDTH 16.2 % (11.5-14.5)
[2019-05-29] MEDS: PANTOPRAZOLE 40 MG TABLET. PO SCH (07:11)
[2019-05-29] MEDS: SUCRALFATE 1 GM TABLET. PO SCH (07:11)
[2019-05-29 07:13] LABS: CALCIUM 9.3 mg/dL (8.5-10.1); CREATININE 1.9 mg/dL (0.6-1.0); GFR 25.5; POTASSIUM 4.4 mmol/L (3.5-5.1)
[2019-05-29] MEDS: prednisoLONE ACETATE 1% OPHTH SUSPENSION 5ML BOTTLE. OS SCH ×2 (08:04→20:45)
[2019-05-29] MEDS: BENZONATATE 100 MG CAPSULE. PO SCH ×3 (08:05→20:43)
[2019-05-29] MEDS: CETIRIZINE HCL 10 MG TABLET PO SCH (08:05)
[2019-05-29] MEDS: LOSARTAN 50 MG TABLET. PO SCH (08:05)
[2019-05-29] MEDS: MULTIVITAMIN with MINERAL TABLET. PO SCH (08:06)
[2019-05-29] MEDS: amLODIPine BESYLATE 10 MG TABLET PO SCH ×2 (08:06→20:44)
[2019-05-29] MEDS: CHOLECALCIFEROL (VITAMIN D3) 1,000 UNIT TABLET PO SCH (08:08)
[2019-05-29] MEDS: LACTOBACILLUS RHAMNOSUS GG 1 CAPSULE. PO SCH ×2 (08:08→20:44)
[2019-05-29] MEDS: DOXYCYCLINE HYCLATE 100 MG TABLET PO SCH ×2 (08:14→20:44)
[2019-05-29] MEDS: ALLOPURINOL 100 MG TABLET. PO SCH (08:14)
[2019-05-29] MEDS: GLIMEPIRIDE 2 MG TABLET PO SCH (08:15)
[2019-05-29] MEDS: INSULIN LISPRO 300 UNITS/3 ML VIAL. SQ SCH ×4 (08:17→20:54)
[2019-05-29] MEDS: FUROSEMIDE 40 MG TABLET PO SCH (08:20)
[2019-05-29] MEDS ORDERED: FUROSEMIDE 40 MG TABLET PO SCH (09:00)
[2019-05-29 10:51] VITALS: BP 146/71
--- NOTE | 2019-05-29 11:19 | RAD ---
LUNG VENT/PERFUSION SCAN(VQ) History: Shortness of breath Comparison: August 11, 2017 Findings: Ventilation perfusion examination was performed. Ventilation images were acquired after the patient inhaled 11 mCi of technetium 99 DTPA. Perfusion images were acquired after the patient was injected with 6 mCi of technetium 99m MAA. Normal radiotracer uptake and rapid excretion on ventilation phase, similar compared to prior. Heterogeneous radiotracer uptake on perfusion images. Cardiomegaly identified on chest x-ray. Several small mismatch perfusion defects within the left lower and upper lung gallegos. Findings according to revised PIOPED 2 criteria. Impression: 1. Low probability for pulmonary embolic disease. Electronically signed by: John Porras DO (05/29/2019 11:16 AM) [facility]
[2019-05-29] MEDS: IPRATROPIUM BROMIDE 0.06% NASAL SPRAY 15ML BOTTLE NS SCH ×2 (12:12→20:45)
[2019-05-29] MEDS: METOCLOPRAMIDE 5 MG TABLET PO SCH ×3 (12:12→20:43)
[2019-05-29] MEDS: FLUTICASONE 50MCG/NASAL SPRAY 16GM BOTTLE. NS SCH (12:12)
[2019-05-29] MEDS: ENOXAPARIN 30 MG/0.3 ML SYRINGE. SQ SCH (13:27)
[2019-05-29 14:42] VITALS: BP 115/64
[2019-05-29 18:22] VITALS: BP 130/61
[2019-05-29] MEDS: MONTELUKAST 10 MG TABLET. PO SCH (20:43)
[2019-05-29] MEDS: HYDROcodone/CHLORPHEN POLIS 5 ML SUS.ER.12H PO PRN (20:43)
--- NOTE | 2019-05-29 21:48 | PN ---
DATE: SUBJECTIVE: A 78-year-old female in with acute exacerbation of her asthma. The patient is resting fairly comfortably, making fairly good progress overall. Still having some coughing spasms and tightness. Otherwise, the patient was sent down because of an elevated D-dimer, but had low probability of PE there, so that is probably what is causing the cough. OBJECTIVE: VITAL SIGNS: Blood pressure 146/70, respiratory rate 20, pulse 95, afebrile. GENERAL: The patient is alert and oriented x 3. Speech spontaneous, appropriate. Cranial nerves 2-12 are grossly intact. The patient continued to be monitored carefully. Urine was unremarkable. LUNGS: Otherwise, lungs are diminished, but basically clear. CARDIOVASCULAR: Irregularly irregular, 1/6 systolic ejection murmur. ABDOMEN: Soft, nontender, no rebounding or guarding. Positive bowel sounds, no hepatosplenomegaly was noted. EXTREMITIES: No clubbing, cyanosis, nor edema. NEUROLOGIC: The patient was alert and oriented x 3. LABORATORY DATA: Show a slight decrease in her hemoglobin 9.4 and 29, stable. The patient's chemistry, sodium 134.4, BUN and creatinine stable at 87 and 1.9. The patient still have some slight edema. She has of course an orthopedic problem with her right leg. Other than that, the patient seems to be making good progress. The patient's lungs were diminished with some expiratory wheezes noted. IMPRESSION: Acute exacerbation of chronic obstructive pulmonary disease with asthma and bronchospasm. The patient in turn continue breathing treatments. Taper down on Solu-Medrol. Try some other medications such as Atrovent for her nasal congestion post nasal drip. MANOHAR ARCE MD DR: TAMMY/lisette JOB#: [id number] / [id number]
[2019-05-30] MEDS: IPRATRPIUM/ALBUTEROL 0.5/2.5MG 3 ML NEBU. NEB SCH ×2 (05:07→11:07)
[2019-05-30 05:51] VITALS: BP 105/52
[2019-05-30] MEDS: METOCLOPRAMIDE 5 MG TABLET PO SCH ×2 (07:58→12:02)
[2019-05-30] MEDS: SUCRALFATE 1 GM TABLET. PO SCH (07:58)
[2019-05-30] MEDS: PANTOPRAZOLE 40 MG TABLET. PO SCH (07:58)
[2019-05-30] MEDS: LACTOBACILLUS RHAMNOSUS GG 1 CAPSULE. PO SCH (07:59)
[2019-05-30] MEDS: methylPREDNISolone SOD SUCC PF 40 MG/ML VIAL. IV SCH (07:59)
[2019-05-30] MEDS: ALLOPURINOL 100 MG TABLET. PO SCH (08:00)
[2019-05-30] MEDS: CHOLECALCIFEROL (VITAMIN D3) 1,000 UNIT TABLET PO SCH (08:00)
[2019-05-30] MEDS: DOXYCYCLINE HYCLATE 100 MG TABLET PO SCH (08:00)
[2019-05-30] MEDS: MULTIVITAMIN with MINERAL TABLET. PO SCH (08:00)
[2019-05-30] MEDS: GLIMEPIRIDE 2 MG TABLET PO SCH (08:00)
[2019-05-30] MEDS: CETIRIZINE HCL 10 MG TABLET PO SCH (08:01)
[2019-05-30] MEDS: FUROSEMIDE 40 MG TABLET PO SCH (08:01)
[2019-05-30] MEDS: BENZONATATE 100 MG CAPSULE. PO SCH (08:01)
[2019-05-30] MEDS: FLUTICASONE 50MCG/NASAL SPRAY 16GM BOTTLE. NS SCH (08:03)
[2019-05-30] MEDS: prednisoLONE ACETATE 1% OPHTH SUSPENSION 5ML BOTTLE. OS SCH (08:03)
[2019-05-30] MEDS: IPRATROPIUM BROMIDE 0.06% NASAL SPRAY 15ML BOTTLE NS SCH (08:03)
[2019-05-30] MEDS: INSULIN LISPRO 300 UNITS/3 ML VIAL. SQ SCH ×2 (08:13→12:00)
[2019-05-30 09:20] VITALS: BP 117/62
[2019-05-30 09:22] VITALS: BP 117/62
[2019-05-30] MEDS: amLODIPine BESYLATE 10 MG TABLET PO SCH (09:22)
[2019-05-30] MEDS: LOSARTAN 50 MG TABLET. PO SCH (09:22)
[2019-05-30] MEDS ORDERED: CEFDINIR 300 MG CAPSULE PO SCH (21:00)
[2019-05-30] MEDS ORDERED: DOXYCYCLINE HYCLATE 100 MG TABLET PO SCH (21:00)
--- NOTE | 2019-05-31 02:22 | DS ---
DATE OF DISCHARGE: 05/30/2019 HOSPITAL COURSE: The patient is a 78-year-old female patient who was admitted on 05/26/2019 with shortness of breath with pneumonia as well as urinary tract infection. She apparently is known to have pneumonia with acute exacerbation of chronic obstructive pulmonary disease as well as urinary tract infection. She was started on ceftriaxone as well as doxycycline and she did very well. When I saw her this morning, she was sitting comfortably in her chair, in no apparent distress. Denied any chest pain or shortness of breath. Denied any cough, phlegm or hemoptysis. PHYSICAL EXAMINATION: GENERAL: When I examined her, she was somewhat pale, but no jaundice, cyanosis. No lymphadenopathy, no thyromegaly, no jugular venous distention, but she has bilateral lower limb edema. VITAL SIGNS: Her heart rate was 78, blood pressure was 117/62, temperature was 97.9, respiratory rate was 21 and oxygen saturation was 98% on room air. HEAD, EYES, EARS, NOSE AND THROAT: Showed normocephalic, atraumatic. NECK: Supple. HEART: Showed normal first and second heart sounds. No gallop or murmur. CHEST: Clear to auscultation. No crepitation or rhonchi. ABDOMEN: Distended, soft, nontender. NEUROLOGIC: She is awake, alert, responding appropriately. All cranial nerves intact. She moves extremities without difficulty. EXTREMITIES: Showed no clubbing, cyanosis, but bilateral lower limb edema. Her intake over the last 24 hours was 1000. No output was recorded. LABORATORY DATA: As of yesterday, her white cell count was 17,000, hemoglobin 9.4, hematocrit 29.6, MCV 86, and platelet count 147,000. Her chemistry showed a serum sodium 130, potassium 4.4, chloride 95, bicarbonate was 23, anion gap of 12, BUN 87, creatinine 1.9, estimated GFR was 25 mL per minute. Her glucose was high at 284, calcium was 9.3, although her D-dimer was high at 2.43 mg/dL. Her pulmonary perfusion ventilation scan was read as low probability for pulmonary embolus. Her mycoplasma serology was negative. Her chest x-ray showed stable diffuse increased interstitial opacity due to interstitial infiltrate or chronic interstitial changes and stable cardiomegaly. DISCHARGE MEDICATIONS: The patient was discharged home to continue on doxycycline 100 mg twice a day for 7 days, cefdinir 300 mg twice a day for 7 days. She was discharged also on all other medications that included albuterol sulfate 1 puff every 4 hours, allopurinol 150 mg once a day, alosetron for Lotronex 0.5 mg p.o. She was discharged also on amlodipine 10 mg twice a day, Celebrex 100 mg daily, cholecalciferol 1000 international unit once a day, diclofenac sodium for Voltaren gel 4 times a day, Nexium 40 mg daily, fluticasone for Advair Diskus 250/50 one inhalation twice a day, glimepiride 8 mg daily, lactobacillus acidophilus 1 capsule daily, Lidoderm patch applied topically, loratadine 10 mg daily, losartan potassium 150 mg daily, montelukast 10 mg p.o. at bedtime, multivitamin 1 tablet once a day, sucralfate 1 gram 4 times a day. FINAL DISCHARGE DIAGNOSES: 1. Community-acquired pneumonia. 2. Acute exacerbation of chronic obstructive pulmonary disease. Other medical problems include type 2 diabetes, chronic kidney disease, degenerative joint disease, and hypokalemia that has resolved. The patient is on multiple medications that might be causing some of her problems including that she is on amlodipine 10 mg twice a day, which is a large dose, and some of her bilateral lower extremity edema might be because of that. She is on losartan 150 mg as well as that might be contraindicated in her case this time with this impaired kidney function. She is also on Celebrex that might also contributing to fluid overload and fluid retention. I explained to the patient that she might have to discuss these with her primary care physician. She will also get her senior flu vaccine at her primary care physician's office. SHIREEN SHARP MD DR: CASSY/lisette JOB#: [id number] / [id number]
--- NOTE | 2019-06-03 11:50 | HP ---
ADMIT DATE: HISTORY OF PRESENT ILLNESS: The patient is a 78-year-old female who came in with a cough for the last 3 weeks becoming increasingly worse, no improvement. The patient had a history of asthma, apparently have been traveling lately and developed this cough that has progressively gotten worse for her. It is wearing her out. She came in through the Emergency Room and was noted to be a little bit more confused than usual. She has been falling as a result of her coughing. She bumped her right hip. There was no head trauma, came in through the Emergency Room where she was evaluated, noted to have severe bronchospasm. The patient was admitted for her acute exacerbation of asthma which has gotten progressively worse. PAST MEDICAL HISTORY: Includes that she is extremely hard of hearing. Ear surgery. The patient has had a pacemaker placement, history of asthma, appendectomy, cholecystectomy, gastroesophageal reflux, hysterectomy, x 2, arthritis, joint replacement, bilateral knee replacement, left shoulder replacement, history of diabetes, depression, influenza vaccination up-to-date. ALLERGIES: To ZETIA, FELODIPINE, MORPHINE, NITROGLYCERIN, ZOCOR and THEOPHYLLINE. CODE STATUS: The patient is a full code. FAMILY HISTORY: Father with colon cancer and stroke. Sister with pancreatic cancer. Mother with colon cancer as well. MEDICATIONS: From home include loratadine 10 mg a day, Ventolin, amlodipine, Norvasc 10 mg a day, losartan, Celebrex, diclofenac, fluticasone, ____ 250/50, Singulair 10, probiotic, Carafate 1 four times a day, Nexium 1 capsule p.r.n., ____ 0.5 mg for diarrhea p.r.n., Amaryl 8 mg daily, vitamin D3, multivitamins, allopurinol 150 mg daily, lidocaine patch. SOCIAL HISTORY: No smoking, alcohol or drug use. REVIEW OF SYSTEMS: The patient denies any headaches, visual change, blurred vision, double vision. Denies chest pain. Does have severe coughing and shortness of breath with minimal exertion. The patient denies any problem with bowels except for mild constipation off and on. Otherwise, she is basically unremarkable there. PHYSICAL EXAMINATION: GENERAL: The patient on exam is a pleasant white female, moderate amount of distress. VITAL SIGNS: Blood pressure 123/50, respiratory rate 20, pulse 74, afebrile, 95% oxygen saturation on room air. HEENT: The patient's head was atraumatic, normocephalic. Eyes: PERRLA, without jaundice. The mouth and throat were normal. NECK: Supple. LUNGS: Diminished but some crackles noted in the bases. CARDIOVASCULAR: Regular sinus rhythm, paced. ABDOMEN: Soft, nontender. No rebounding or guarding. Positive bowel sounds. No hepatosplenomegaly was noted. Otherwise the patient's abdomen was soft, nontender. EXTREMITIES: No clubbing, cyanosis. Trace edema noted, ____ her medication. NEUROLOGIC: The patient is alert and oriented x 3. The patient otherwise will be monitored carefully, make further evaluation on her as indicated. Adjust some of her medication. LABORATORY DATA: White count was still elevated at 17,000, hemoglobin and hematocrit 10 and 32. The patient's BUN and creatinine 62 and 2.3, glucose 229. Albumin low at 2.9. IMPRESSION: Acute exacerbation of asthma, possible pneumonia, chronic kidney disease stage 3, severe protein malnutrition. PLAN: The patient was admitted for further evaluation and treatment. Consider steroid and monitoring blood sugar as well as antibiotics, aggressive pulmonary toilet and adjustment of her medications. MANOHAR ARCE MD DR: TAMMY/lisette JOB#: [id number] / [id number]
== END 2019-05-30 12:45 | disposition home health service (06) | DRG 871 ==
LOC: ER 08:39 → 1 SOUTH 11:07
PROVIDERS: ADMIT Family Medicine; ATTEND Internal Medicine
DX: A41.9 Sepsis, unspecified organism (principal); J18.9 Pneumonia, unspecified organism; J44.1 Chronic obstructive pulmonary disease with (acute) exacerbation; J44.0 Chronic obstructive pulmonary disease with (acute) lower respiratory infection; J45.901 Unspecified asthma with (acute) exacerbation; E44.0 Moderate protein-calorie malnutrition; N18.4 Chronic kidney disease, stage 4 (severe); N39.0 Urinary tract infection, site not specified; F32.9 Major depressive disorder, single episode, unspecified; I12.9 Hypertensive chronic kidney disease with stage 1 through stage 4 chronic kidney disease, or unspecified chronic kidney disease; D63.8 Anemia in other chronic diseases classified elsewhere; E87.6 Hypokalemia; Z68.35 Body mass index [BMI] 35.0-35.9, adult; E11.22 Type 2 diabetes mellitus with diabetic chronic kidney disease; J20.9 Acute bronchitis, unspecified; K21.9 Gastro-esophageal reflux disease without esophagitis; Z90.49 Acquired absence of other specified parts of digestive tract; Z90.710 Acquired absence of both cervix and uterus; Z96.659 Presence of unspecified artificial knee joint; M19.90 Unspecified osteoarthritis, unspecified site; Z88.8 Allergy status to other drugs, medicaments and biological substances
CPT/HCPCS: 36415; 70450; 71046; 73502; 78582; 80048; 80053; 81001; 82550; 82947; 83605; 84145; 84484; 85007; 85025; 85379; 86738; 87040; 87070; 87086; 87205; 94640; 96365; 96368; 96374; A9540; A9558; J0696; J1650; J1815; J2920; J3490; J7040; J7512; J7613; J7620; J8597; 97110; 97116; 97530; 97535; 99285-25; J7030

== ENCOUNTER → 2019-07-06 | Outpatient (CLI) | payer MEDICARE, OTHER ==
[~2019-07-06] MED LIST changes: +ALLO100T PO; +ALOS0.5T PO; +CELE100C PO; +CHOL10003 PO; +DICL100G18 TP; +ESOM40CA PO; +FLUT1DIS3 IH; +IOHEXOL 240 MG/ML 50ML VIAL. ONE; +LACT1CAP6 PO; +LOSA100T2 PO; +MULT1TAB52 PO
--- NOTE | 2019-07-06 12:26 | RAD ---
Examination: CT ABD PEL W/ORAL CONTRST ONLY History: Left lower quadrant pain with nausea Comparison/Correlation: 02/19/2015 CT abdomen and pelvis without contrast Findings: Axial images of the abdomen and pelvis were obtained following oral contrast administration. Sagittal and coronal reformatted images were provided. Pacemaker leads are present. Mild scattered bibasilar atelectasis is present. Mild lateral right lower lobe bronchiectasis is present. Cholecystectomy is evident. Liver, spleen, adrenal glands, and pancreas are normal. Multiple bilateral renal lesions are present. Some of these are of moderately high density as would be expected with hemorrhagic cysts. Others are indeterminate lower density. Largest of these on the right is present at the inferior pole anteriorly measuring up to 2 cm diameter. Largest of these in the left anteriorly is identified measuring 1.6 cm. The largest on the left anteriorly measures up to 1.5 cm diameter. These are notably greater in size compared to the previous exam of 02/19/2015. Increase in size of the left renal interpolar region cyst is evident. No hydronephrosis or nephrolithiasis. Diverticulosis of the colon is present especially in the sigmoid region. No extraluminal gas. No obstruction. No inflammatory findings. Urinary bladder is unremarkable. No enlarged abdominal or pelvic lymph nodes. Appendix is not identified consistent with surgical history. Hysterectomy noted. Moderate L4-5 disc space narrowing is present. Right L5 pars interarticularis fracture is chronic in appearance without significant displacement. There is mild anterolisthesis of L5 in relation to S1 by 0.7 cm and this is nearly grade 1 extent. Impression: Diverticulosis. No acute inflammatory process. Bilateral renal lesions are present. Some of these are greater in size in the interval. Renal lesions are indeterminate. Some appear to represent hemorrhagic cysts. Consider interval follow-up CT of the kidneys with contrast for further characterization. Right L5 old pars interarticularis fracture with nearly grade 1 anterolisthesis of L5-S1. PQRS Compliance Statement: One or more of the following individualized dose reduction techniques were utilized for this examination: 1. Automated exposure control 2. Adjustment of the mA and/or kV according to patient size 3. Use of iterative reconstruction technique Electronically signed by: Mendel Carlos MD (07/06/2019 12:23 PM) [facility]
== END | disposition home or self-care (01) ==
LOC: CT 09:49
PROVIDERS: ATTEND Family Medicine
DX: K57.30 Diverticulosis of large intestine without perforation or abscess without bleeding (principal); N28.1 Cyst of kidney, acquired; N28.89 Other specified disorders of kidney and ureter; J47.9 Bronchiectasis, uncomplicated; M48.061 Spinal stenosis, lumbar region without neurogenic claudication; Z90.49 Acquired absence of other specified parts of digestive tract; Z90.710 Acquired absence of both cervix and uterus; Z95.0 Presence of cardiac pacemaker
CPT/HCPCS: 74176

== ENCOUNTER → 2019-07-27 | Outpatient (CLI) | payer MEDICARE, OTHER ==
[~2019-07-27] MED LIST changes: -IOHEXOL 240 MG/ML 50ML VIAL. ONE; +POTA10TA12 PO; -POTA10TA31 PO
[2019-07-27 12:20] LABS: BASO % 1 % (0-3); EOS # 0.2 x10^3/uL (0.0-0.7); EOS % 2 % (0-3); HEMATOCRIT 37.8 % (36.0-47.0); HEMOGLOBIN 11.9 g/dL (12.0-15.5); LYMPH # 1.7 x10^3/uL (1.0-4.8); LYMPH % 18 % (24-48); MEAN CORPUSCULAR HEMOGLOBIN 27 pg (25-35); MEAN CORPUSCULAR HGB CONC 32 g/dL (31-37); MEAN CORPUSCULAR VOLUME 87 fL (79-100); MONO # 0.8 x10^3/uL (0.0-1.1); MONO % 8 % (0-9); NEUT % 71 % (31-73); PLATELET COUNT 221 x10^3/uL (140-400); RED BLOOD COUNT 4.37 x10^6/uL (3.50-5.40); RED CELL DISTRIBUTION WIDTH 17.8 % (11.5-14.5); WHITE BLOOD COUNT 9.9 x10^3/uL (4.0-11.0)
[2019-07-27 13:25] LABS: SEDIMENTATION RATE 44 (0-25)
== END | disposition home or self-care (01) ==
LOC: LAB 11:57
PROVIDERS: ATTEND Orthopaedic Surgery
DX: M25.562 Pain in left knee (principal)
CPT/HCPCS: 36415; 85025; 85651; 86140

== ENCOUNTER → 2019-08-15 | Outpatient (CLI) | payer MEDICARE, OTHER ==
--- NOTE | 2019-08-15 12:39 | RAD ---
EXAM: Nuclear gastric emptying scan. HISTORY: Nausea following cholecystectomy. COMPARISON: None. TECHNIQUE: Serial static images were obtained over the stomach following oral administration of 2 mCi of 99m-Tc sulfur colloid in an egg based meal. FINDINGS: The stomach empties into the small bowel without evidence of reflux in the area of the esophagus. The estimated time for half emptying of gastric contents, i.e. 'gastric emptying time' is 67 minutes (normal is 66 +/- 22 minutes). There is 54% retained tracer activity within the stomach at one hour, 26% retained tracer activity within the stomach at 2 hours, 13% retained tracer activity within the stomach at 3 hours, and 5% retained tracer activity within the stomach at 4 hours. IMPRESSION: Gastric emptying half-time within normal limits. Electronically signed by: Chichi Gonsalez MD (08/15/2019 12:36 PM) [facility]
== END | disposition home or self-care (01) ==
LOC: NM 07:54
PROVIDERS: ATTEND Internal Medicine Gastroenterology
DX: R11.0 Nausea (principal); Z90.49 Acquired absence of other specified parts of digestive tract
CPT/HCPCS: 78264; A9541

== ENCOUNTER → 2019-09-05 | Outpatient (CLI) | payer MEDICARE, OTHER ==
--- NOTE | 2019-09-05 11:09 | RAD ---
EXAM: Chest, 2 views. HISTORY: Cough. COMPARISON: 05/26/2019 FINDINGS: 2 views of the chest are obtained. There is no infiltrate, pleural effusion or pneumothorax. There are coarse likely chronic interstitial markings. There is hyperinflation due to inspiratory effort or emphysema. There is cardia megaly. There is a cardiac pacemaker in expected position. There is a left shoulder arthroplasty. There are cholecystectomy clips. IMPRESSION: No acute pulmonary finding. Electronically signed by: Chichi Gonsalez MD (09/05/2019 11:06 AM) [place] [id number]
--- NOTE | 2019-09-05 13:49 | RAD ---
Bone Scintigraphy - Limited Area PROCEDURE: BONE SCAN WHOLE BODY STUDY DATE: 09/05/2019 RADIOPHARMACEUTICAL: 25 mCi Tc-99m MDP I.V. CLINICAL INDICATION/HISTORY: Abnormal levels of other serum enzymes.. TECHNIQUE: Following IV administration of 25 mCi technetium labeled MDP radiopharmaceutical in the left antecubital fossa and an appropriate delay whole-body imaging was performed in the anterior and posterior planes COMPARISON: None FINDINGS: Physiologic dissipation of uptake with photopenia in the bilateral knee joints consistent with bilateral knee arthroplasties are present. There are additional foci of uptake in the joints including the bilateral feet suggestive of degenerative change.. IMPRESSION: 1. Normal whole body bone scan. Electronically signed by: Pilar Silva MD (09/05/2019 1:46 PM) [facility]
== END | disposition home or self-care (01) ==
LOC: NM 08:13
PROVIDERS: ATTEND Family Medicine
DX: R05 Cough (principal); R74.8 Abnormal levels of other serum enzymes; Z90.49 Acquired absence of other specified parts of digestive tract; Z95.0 Presence of cardiac pacemaker; Z96.653 Presence of artificial knee joint, bilateral
CPT/HCPCS: 71046; 78306; A9503

== ENCOUNTER → 2019-09-15 | Outpatient (CLI) | payer MEDICARE, OTHER ==
--- NOTE | 2019-09-15 16:40 | RAD ---
CHEST PA LATERAL History: Cough Comparison: 09/05/2021 view chest x-ray exam. Findings: Frontal and lateral views of the chest were obtained. Left shoulder joint prosthesis is present. Dual-lead left-sided pacemaker is present. Right upper quadrant surgical clips are noted. The cardiomediastinal silhouette is enlarged. Pulmonary vasculature is normal. The lungs are clear. No pleural effusion or pneumothorax is seen. There is no acute bone abnormality. IMPRESSION: No acute cardiopulmonary process. Electronically signed by: Mendel Carlos MD (09/15/2019 4:37 PM) [facility]
== END | disposition home or self-care (01) ==
LOC: DXRAD 15:19
PROVIDERS: ATTEND Family Medicine
DX: J44.9 Chronic obstructive pulmonary disease, unspecified (principal); Z95.0 Presence of cardiac pacemaker
CPT/HCPCS: 71046

== ENCOUNTER → 2019-09-20 | Outpatient (CLI) | payer MEDICARE, OTHER ==
--- NOTE | 2019-09-20 13:08 | RAD ---
EXAM: Chest, 2 views. HISTORY: COPD. COMPARISON: 09/15/2019 FINDINGS: 2 views of the chest are obtained. There is chronic lower lobe predominant increased interstitial opacity. There is no consolidation, protrusion or pneumothorax. There is a stable prominent cardiac silhouette and cardiac pacemaker with leads in expected position. There is a left shoulder arthroplasty. There are cholecystectomy clips. IMPRESSION: No acute pulmonary finding. Chronic interstitial changes. Electronically signed by: Chichi Gonsalez MD (09/20/2019 1:05 PM) [facility] [place]
--- NOTE | 2019-09-20 13:50 | RAD ---
EXAM: Bilateral lower extremity venous Doppler. HISTORY: Bilateral lower extremity pain/swelling. Elevated d-dimer. COMPARISON: None. FINDINGS: Grayscale and Doppler analysis of the both lower extremity deep venous systems was performed with graded compression and augmentation. The common femoral, greater saphenous, superficial femoral, popliteal and calf veins were assessed. There is occlusive thrombus within one of the left posterior tibial veins. There is no deep venous thrombosis on the right. IMPRESSION: 1. Deep venous thrombosis within one left posterior tibial vein. These findings were called to Che by Felipe Painter on 09/20/2019 at 1:47 PM. FOR INTERNAL CODING PURPOSES RESULT CODE: (C) Electronically signed by: Joni Painter MD (09/20/2019 1:47 PM) [id number]
--- NOTE | 2019-09-20 14:24 | RAD ---
EXAM: VENTILATION/PERFUSION SCINTIGRAPHY. HISTORY: Deep venous thrombosis, coagulopathy. Assess for pulmonary embolism. TECHNIQUE: 8.5 mCi Xe-133 was inhaled and ventilation images were obtained. 5.3 mCi Tc-99m MAA was injected intravenously and perfusion images were obtained in multiple projections. COMPARISON: No chest radiograph available. Today's lower extremity Doppler. FINDINGS: Ventilation images demonstrate a physiologic distribution of radiotracer. Perfusion images demonstrate no segmental defects. IMPRESSION: 1. Low probability for pulmonary embolism. In the setting of known lower extremity deep venous thrombosis and high clinical suspicion, there is a small likelihood for pulmonary emboli. There is no evidence of large pulmonary embolism. Electronically signed by: Joni Painter MD (09/20/2019 2:22 PM) [facility]
== END | disposition home or self-care (01) ==
LOC: US 11:50
PROVIDERS: ATTEND Family Medicine
DX: I82.442 Acute embolism and thrombosis of left tibial vein (principal); J44.9 Chronic obstructive pulmonary disease, unspecified
CPT/HCPCS: 71046; 78582; 93970; A9540; A9558; 96374

== ENCOUNTER → 2020-01-19 | Outpatient (CLI) | payer MEDICARE, OTHER ==
--- NOTE | 2020-01-19 14:03 | CARD ---
MR#: [id number] Date of Study: 01/19/2020 Ordering Physician: JEWEL BLANTON, Referring Physician: JEWEL BLANTON, Tech: Lakeisha Perez CIRO APPROVED REPORT EXAM: Two-dimensional and M-mode echocardiogram with Doppler and color Doppler. Other Information Quality : Good INDICATION Diastolic Heart Failure Surgery/Intervention Pacemaker: 2D DIMENSIONS RVDd2.0 (2.9-3.5cm)Left Atrium(2D)3.6 (1.6-4.0cm) IVSd1.0 (0.7-1.1cm)Aortic Root(2D)2.8 (2.0-3.7cm) LVDd4.9 (3.9-5.9cm)LVOT Diameter2.0 (1.8-2.4cm) PWd0.9 (0.7-1.1cm)LVDs2.6 (2.5-4.0cm) FS (%) 30.0 %SV89.0 ml LVEF(%)60.0 (>50%) Aortic Valve AoV Peak Scott.152.1cm/sAoV VTI26.5cm AO Peak GR.9.2mmHgLVOT Peak Scott.117.1cm/s LVOT VTI 22.63cmAO Mean GR.5mmHg JEANNIE (VMAX)2.39uc9SJD (VTI)2.76cm2 Mitral Valve MV E Kexveiws14.3cm/sMV DECEL GVKN134yu MV A Hnlhoczy793.2cm/sE/A Ratio0.6 Tricuspid Valve TR P. Rxzhwfbv225uj/sRAP UVSLEJLI9caUh TR Peak Gr.38adCiWFYV07igEf LEFT VENTRICLE The left ventricle is normal size. There is normal left ventricular wall thickness. The left ventricu lar systolic function is normal and the ejection fraction is within normal range. The Ejection Fracti on is 55-60%. There is normal LV segmental wall motion. Transmitral Doppler flow pattern is Grade I-a bnormal relaxation pattern. RIGHT VENTRICLE The right ventricle is normal size. The right ventricular systolic function is normal. There are prob able device leads in the right ventricle and atrium. ATRIA The left atrium size is normal. The right atrium size is normal. The interatrial septum is intact wit h no evidence for an atrial septal defect or patent foramen ovale as noted on 2-D or Doppler imaging. AORTIC VALVE The aortic valve is calcified but opens well. Doppler and Color Flow revealed no significant aortic r egurgitation. There is no significant aortic valvular stenosis. MITRAL VALVE The mitral valve is calcified but opens well. Posterior mitral annular calcification is mild. There i s no evidence of mitral valve prolapse. There is no mitral valve stenosis. Doppler and Color-flow rev ealed trace mitral regurgitation. TRICUSPID VALVE The tricuspid valve is normal in structure and function. Doppler and Color Flow revealed trace tricus pid regurgitation. The PA pressure was estimated at 34 mmHg. There is no tricuspid valve stenosis. PULMONIC VALVE The pulmonic valve is not well visualized. Doppler and Color Flow revealed no pulmonic valvular regur gitation. There is no pulmonic valvular stenosis. GREAT VESSELS The aortic root is normal in size. The ascending aorta is not well seen. The IVC is normal in size an d collapses >50% with inspiration. PERICARDIAL EFFUSION There is no evidence of significant pericardial effusion. Critical Notification Critical Value: No <Conclusion> The left ventricle is normal size. The left ventricular systolic function is normal and the ejection fraction is within normal range. The Ejection Fraction is 55-60%. Doppler and Color Flow revealed no significant aortic regurgitation. There is no significant aortic valvular stenosis. Doppler and Color-flow revealed trace mitral regurgitation. Doppler and Color Flow revealed trace tricuspid regurgitation. The PA pressure was estimated at 34 mmHg. Signed by : Santiago Paz MD Electronically Approved : 01/19/2020 14:03:18
== END ==
LOC: ECHO 12:39
PROVIDERS: ATTEND Internal Medicine Cardiovascular Disease
DX: I08.0 Rheumatic disorders of both mitral and aortic valves (principal); I50.30 Unspecified diastolic (congestive) heart failure
CPT/HCPCS: 93306

== ENCOUNTER → 2020-02-10 | Outpatient (CLI) | payer MEDICARE, OTHER ==
[~2020-02-10] MED LIST changes: +MULT-445 PO; -MULT1TAB52 PO
--- NOTE | 2020-02-10 11:45 | RAD ---
Left lower extremity venous real time grayscale, color and spectral duplex ultrasound was performed. History: Reason: SWELLING, LEG PAIN, HISTORY OF DVT 2019 / [facility]. Instructions: / History: Comparison: 09/20/2019 The left common femoral, femoral, and popliteal veins demonstrate anechoic lumina, full compressibility, augmentable waveforms, and cephalad color Doppler flow. The posterior tibial are also patent. Normal flow is also seen in the cephalad portion of the saphenous vein. Impression: No evidence of DVT in the left lower extremity. Electronically signed by: Stephen Guevara MD (02/10/2020 11:41 AM) [id number]
--- NOTE | 2020-02-10 12:42 | RAD ---
COMPLETE ABDOMINAL ULTRASOUND Clinical History: Reason: ELEVATED LFTS / Spl. Instructions: / History: Comparison: CT abdomen and pelvis without contrast, July 06, 2019. Technique: Sonographic examination of the abdomen was performed and multiple grayscale and color Doppler static images were obtained. Findings: Most of the liver is visualized and is homogeneous. The liver measures 14.4 cm. Ultrasound is not sensitive for detecting solid liver lesions. Portal flow is hepatopetal. The common bile duct is moderately dilated measuring 15 mm in diameter. The gallbladder is surgically absent. The visualized pancreas is homogeneous. There are at least 2 right renal cysts, largest measures up to 2.3 cm. The right kidney is normal in echotexture and measures 10 cm. There are at least 2 left renal cysts, largest measures up to 2.1 cm. The left kidney is normal in echotexture and measures 10.9 cm. Corticomedullary differentiation is preserved. There is no hydronephrosis. The spleen is not enlarged, measuring 9.4 cm. Visualized portions of the abdominal aorta and IVC are normal. IMPRESSION: 1. Common bile duct is moderately dilated. Dilation is similar to prior CT. 2. There are small bilateral renal cysts. No follow-up is recommended. Electronically signed by: Aung Garcias MD (02/10/2020 12:39 PM) [id number]
== END ==
LOC: US 08:39
PROVIDERS: ATTEND Family Medicine
DX: N28.1 Cyst of kidney, acquired (principal); M79.605 Pain in left leg; Z86.718 Personal history of other venous thrombosis and embolism; Z90.49 Acquired absence of other specified parts of digestive tract
CPT/HCPCS: 76700; 93971

== ENCOUNTER → 2020-04-10 | Outpatient (CLI) | payer MEDICARE, OTHER ==
--- NOTE | 2020-04-10 12:25 | RAD ---
EXAM: THORACIC SPINE 3V. HISTORY: Thoracic spine pain. COMPARISON: None. FINDINGS: There is mild superior plate depression at T4. Mild superior plate depression at T6 appears more secondary to remodeling than a compression deformity. Degenerative disc disease is moderate from T5 through T7 and mild elsewhere. There is mild exaggeration of the upper thoracic kyphosis. Aortic atherosclerotic calcifications are noted. A left pacemaker is partially visualized. Cholecystectomy clips are noted. IMPRESSION: 1. Mild superior endplate compression deformities at T4 and T6 do not appear acute. Correlate for focal tenderness. 2. Degenerative disc disease is moderate from T5 through T7 and mild elsewhere. Electronically signed by: Joni Painter MD (04/10/2020 12:22 PM) [id number]
== END | disposition home or self-care (01) ==
LOC: DXRAD 11:39
PROVIDERS: ATTEND Family Medicine
DX: M51.34 Other intervertebral disc degeneration, thoracic region (principal); M40.294 Other kyphosis, thoracic region; I70.0 Atherosclerosis of aorta; Z95.0 Presence of cardiac pacemaker; Z90.49 Acquired absence of other specified parts of digestive tract
CPT/HCPCS: 72072

== ENCOUNTER → 2020-07-06 | Outpatient (CLI) | payer MEDICARE, OTHER ==
--- NOTE | 2020-07-09 09:43 | RAD ---
DATE: 07/06/2020 3:30 PM EXAM: DIGITAL SCREEN BILAT W/CAD HISTORY: Screening COMPARISON: 05/19/2018 Bilateral full field craniocaudal and mediolateral oblique images were obtained using digital technique. This study was interpreted with the benefit of Computerized Aided Detection (CAD). FINDINGS: Breast Density: SCATTERED The breast parenchyma shows scattered fibroglandular densities. Breast parenchyma level B No suspicious masses, microcalcifications or architectural distortion is present to suggest malignancy in either breast. The visualized axillae are unremarkable. IMPRESSION: No mammographic evidence of malignancy. BI-RADS CATEGORY: 1 NEGATIVE RECOMMENDED FOLLOW-UP: 12M 12 MONTH FOLLOW-UP Annual screening mammography is recommended, unless clinically indicated sooner based on symptoms or change in physical exam. PQRS compliance statement: Patient information was entered into a reminder system with a target due date for the next mammogram. Mammography is a sensitive method for finding small breast cancers, but it does not detect them all and is not a substitute for careful clinical examination. A negative mammogram does not negate a clinically suspicious finding and should not result in delay in biopsying a clinically suspicious abnormality. "Our facility is accredited by the [employer] Mammography Program."
== END ==
LOC: MAMMO 15:06
PROVIDERS: ATTEND Family Medicine
DX: Z12.31 Encounter for screening mammogram for malignant neoplasm of breast (principal)
CPT/HCPCS: 77067

== ENCOUNTER → 2021-01-23 | Outpatient (CLI) | payer MEDICARE, OTHER ==
[~2021-01-23] MED LIST changes: +IOHEXOL 240 MG/ML 50ML VIAL. ONE
--- NOTE | 2021-01-23 12:09 | RAD ---
Exam: CT abdomen/pelvis without intravenous contrast Indication: Generalized abdominal pain Comparison: CT abdomen pelvis 07/06/2019 Technique: Helical CT imaging performed of the abdomen and pelvis without the use of intravenous cont rast. Sagittal and coronal reformats were obtained. One or more of the following individualized dose reduction techniques were utilized for this examinat ion: 1. Automated exposure control 2. Adjustment of the mA and/or kV according to patient size 3. Use of iterative reconstruction technique. Findings: Inherently limited evaluation without intravenous contrast. Lower chest: Unchanged subpleural reticular opacities, greatest in the lateral right middle lobe wher e there is also mild traction bronchiectasis. The heart is normal in size. There is a pacemaker/AICD. Trace pericardial fluid. Liver: There is a tiny subcentimeter hypodensity in the posterior right hepatic lobe, unchanged. The noncontrast liver is otherwise normal in appearance. Gallbladder/Biliary Tree: Post cholecystectomy. The common bile duct is dilated measuring 12 mm, unch anged. Pancreas: There is mild fatty atrophy of the pancreas. Spleen: No splenomegaly. Adrenal Glands: Normal. Kidneys/Ureters/Bladder: Kidneys are normal in size and enhance symmetrically. No hydronephrosis. The re are multiple bilateral simple renal cysts as well as multiple bilateral hyperdense renal lesions c onsistent with hemorrhagic cysts. The largest simple cyst on the right measures 1.9 cm and largest he morrhagic cyst on the right measures 1.0 cm. The largest simple cyst on the left measures 2.4 cm. The largest hemorrhagic cyst in the left measures 1.4 cm. The ureters are normal. The bladder is decompr essed. Reproductive Organs: Uterus is surgically absent. No adnexal mass. Stomach, small bowel, and colon: The stomach and small bowel are normal. There are diverticula in the descending and sigmoid colon. There is wall thickening and inflammation along the sigmoid colon with small amount of free fluid in the left lower quadrant, consistent with acute diverticulitis. Large v olume of stool. The appendix is not definitively visualized. Vasculature: Abdominal aorta is normal in caliber. There is moderate calcified aortoiliac atheroscler osis. Lymph Nodes: There are small lymph nodes in the left lower quadrant along the sigmoid colon. For exam ple a small lymph node on image 85 measures 6 cm short axis. A left external iliac chain lymph node m easures 9 mm short axis. There are multiple small lymph nodes along the iliac chain. For example 2 ly mph nodes measuring up to 6 mm on images 70 and 73, series 2. Peritoneum and retroperitoneum: There is no pneumoperitoneum. No abscess. Bones: No acute osseous abnormality. There is degenerative disc disease in the thoracic and lumbar sp ine. Mild degenerative joint disease of the hips. There is severe facet arthrosis at L5-S1. Impression: 1. Acute uncomplicated sigmoid diverticulitis. There multiple small lymph nodes around the sigmoid c olon and left common and external iliac chains. Trace free fluid in the left lower quadrant.. Recomme nd correlation with colonoscopy after treatment to exclude underlying mass. 2. Bilateral simple and hemorrhagic renal cysts. 3. Post cholecystectomy. Unchanged dilation of the common bile duct. Electronically signed by: Katerine Stallings MD (01/23/2021 12:07 PM) [id number]
== END ==
LOC: CT 10:37
PROVIDERS: ATTEND Family Medicine
DX: K57.30 Diverticulosis of large intestine without perforation or abscess without bleeding (principal); N28.1 Cyst of kidney, acquired; K86.89 Other specified diseases of pancreas
CPT/HCPCS: 74176

== ENCOUNTER → 2021-06-19 | Outpatient (CLI) | payer MEDICARE, OTHER ==
[~2021-06-19] MED LIST changes: -IOHEXOL 240 MG/ML 50ML VIAL. ONE
--- NOTE | 2021-06-19 14:55 | RAD ---
EXAM: Left foot, 3 views. HISTORY: Heel pain. COMPARISON: None. FINDINGS: 3 views of the left foot are obtained. There is no fracture, dislocation or subluxation. Th ere is a small plantar spur. There is a tiny enthesophyte at the Achilles tendon insertion. There are vascular calcifications. There is bone demineralization. IMPRESSION: 1. Tiny plantar spur. 2. No acute osseous finding. Electronically signed by: Chichi Gonsalez MD (06/19/2021 2:52 PM) [id number]
== END ==
LOC: RAD 14:27
PROVIDERS: ATTEND Family Medicine
DX: M77.8 Other enthesopathies, not elsewhere classified (principal); M25.872 Other specified joint disorders, left ankle and foot; M79.672 Pain in left foot
CPT/HCPCS: 73630

== ENCOUNTER → 2021-07-15 | Outpatient (CLI) | payer MEDICARE, OTHER ==
--- NOTE | 2021-07-15 16:45 | RAD ---
EXAM: ABDOMEN 2 VIEWS. HISTORY: Abdominal pain and diarrhea. COMPARISON: None. FINDINGS: Supine and upright views of the abdomen are obtained. Cholecystectomy clips are noted. Pace maker leads are partially visualized. There is no pneumoperitoneum. There are no distended small bowel loops or significant air fluid level s. There is gas distally. IMPRESSION: 1. No evidence of obstruction. Electronically signed by: Joni Painter MD (07/15/2021 4:43 PM) [id number]
== END ==
LOC: RAD 15:38
PROVIDERS: ATTEND Family Medicine
DX: K58.0 Irritable bowel syndrome with diarrhea (principal); R10.9 Unspecified abdominal pain; Z90.49 Acquired absence of other specified parts of digestive tract
CPT/HCPCS: 74019

== ENCOUNTER → 2021-08-12 | Outpatient (CLI) | payer MEDICARE, OTHER ==
--- NOTE | 2021-08-12 15:50 | RAD ---
BILATERAL DIGITAL SCREENING 2-D AND 3-D MAMMOGRAM INDICATION: Routine screening. COMPARISON: Prior studies including one of 07/06/2020. Interpretation was made using CAD. FINDINGS: Breast Density: B RIGHT BREAST: No suspicious masses, calcifications or areas of architectural distortion are seen. LEFT BREAST: No suspicious masses, calcifications or areas of architectural distortion are seen. IMPRESSION: 1. No imaging evidence of malignancy. ASSESSMENT: BI-RADS 1. Negative. RECOMMENDATION: Routine annual screening mammogram. The facility will notify the patient of the results via mail. Patient information will be entered int o the mammography reminder system with a target recall date for the next mammogram. A reminder letter will be generated by the facility. Electronically signed by: Santiago Novoa Jr., MD (08/12/2021 3:47 PM) [id number]
== END ==
LOC: MAMMO 13:57
PROVIDERS: ATTEND Family Medicine
DX: Z12.31 Encounter for screening mammogram for malignant neoplasm of breast (principal)
CPT/HCPCS: 77063; 77067

== ENCOUNTER 2021-08-23 01:09 | Emergency (ER) | payer MEDICARE, OTHER ==
[~2021-08-23] VITALS: Ht 152.4 cm; Wt 84.9 kg
--- NOTE | 2021-08-23 01:37 | PHYS DOC ---
Past History Past Medical History: Arthritis, Asthma, Depression, Diabetes, GERD, Hypertension Past Surgical History: Appendectomy, Cholecystectomy, , Hysterectomy, Knee Replacement Alcohol Use: None Drug Use: None Adult General HPI HPI Patient is an 80-year-old female with a past medical history of CAD, diabetes, and hypertension who presents with a chief complaint of right-sided painless vision loss which started a half an hour before coming to the emergency department. States she has been having issues with her vision especially in the right eye over the last year and is seen her [employer] several times and had several exams but nothing has been found. States just before coming in she was watching TV and her vision started getting blurry and then went black and then came back but things still look blurry and the colors have changed. Denies any recent traumas, travels, illnesses, fevers, chest pain, shortness of breath, abdominal pain, nausea, vomiting. Denies any numbness/weakness/tingling. Denies any trouble sitting, standing or walking as she is at baseline. Denies any known ill contacts. Review of Systems Review of Systems Review of systems otherwise unremarkable except noted in HPI Allergies Allergies Allergies Coded Allergies Type Severity Reaction Last Updated Verified ezetimibe Allergy Severe Itching 05/26/19 No simvastatin Allergy Severe Itching 05/26/19 No felodipine Allergy Intermediate Rash 05/26/19 Yes morphine Allergy Intermediate Swelling 05/26/19 Yes theophylline Allergy Intermediate Rash 05/26/19 Yes nitroglycerin Adverse Reaction Intermediate sensetive to NTG (sweating, increased HR) 05/26/19 No Physical Exam Physical Exam Constitutional: Well developed, well nourished, no acute distress, non-toxic appearance. [] HENT: Normocephalic, atraumatic, bilateral external ears normal, oropharynx moist, no oral exudates, nose normal. [] Eyes: PERRLA, EOMI, conjunctiva normal, no discharge. [] Neck: Normal range of motion, no tenderness, supple, no stridor. [] Cardiovascular:Heart rate regular rhythm, no murmur [] Lungs & Thorax: Bilateral breath sounds clear to auscultation [] Abdomen: soft, no tenderness, no masses, no pulsatile masses. [] Skin: Warm, dry, no erythema, no rash. [] Extremities: No tenderness, no cyanosis, no clubbing, ROM intact, no edema. [] Neurologic: Alert and oriented X 3, normal motor function, normal sensory function, no focal deficits noted. [] Psychologic: Affect normal, judgement normal, mood normal. [] EKG EKG [] Radiology/Procedures Radiology/Procedures [] Heart Score C/O Chest Pain: No Risk Factors: Risk Factors: DM, Current or recent (<one month) smoker, HTN, HLP, family history of CAD, obesity. Risk Scores: Risk Factors: DM, Current or recent (<one month) smoker, HTN, HLP, family history of CAD, obesity. Course & Med Decision Making Course & Med Decision Making Patient is an 80-year-old female who presents with painless right-sided vision loss at half an hour before coming into the emergency department Vital signs not concerning. Physical exam noted above. Discussed differential diagnosis with patient and family, ocular massage and need for CT/CTA to rule out stroke/retinal artery or vein occlusion CT of the head and CTA of the head and neck with no acute abnormalities. CTA showed patent ophthalmic arteries and veins. Patient's vision did improve in the emergency department. Laboratory analysis notable for mild creatinine elevation. Discussed differential of ophthalmologic versus neurologic/TIA. Offered admission and transfer to [place] for neurologic work-up. Patient family stated she was doing better, felt well and wanted to follow-up in the morning at [place] with her [employer]. Discussed risks of this including worsening of her vision again, eye pain, temporary or even permanent vision loss or stroke, disability and in the worse case scenario . Patient and family member gracious, verbalized understanding and agreed with plan discharge. [] Dragon Disclaimer Dragon Disclaimer This electronic medical record was generated, in whole or in part, using a voice recognition dictation system. Departure Departure: Impression: Primary Impression: Vision loss Additional Impression: Elevated serum creatinine Disposition: HOME / SELF CARE / HOMELESS Condition: STABLE Referrals: FANY TAN MD (PCP) Patient Instructions: Eye - Blurred Vision Additional Instructions: Thank you for coming into the emergency department tonight and allowing us to take care of you. Please read the attached information carefully to go over some of the things we discussed. As we discussed, your laboratory analysis and your imaging showed mild elevation in your creatinine which shows kidney function that should be evaluated by your primary care physician. Please drink plenty of fluids. The imaging of your head and neck did not show any current stroke. We discussed different diagnosis such as stroke versus primary ophthalmologic/eye problems. You are offered admission to [facility] for continued evaluation and treatment by the neurology team but decided that you would go to your [employer] first thing in the morning at [place]. We discussed the risks of this including new or worsening symptoms of your vision, and stroke symptoms. We discussed strict return precautions to the emergency department. Please either call or show up at your [employer] office when they open first thing in the morning at [place] to discuss your ED visit. This is now a post ER follow-up visit. When you visit your [employer] you can let them know that you were worked up for a stroke and clot in your eye in the emergency department which were all negative. As we discussed, please come back to the emergency department immediately with new or concerning symptoms. Problem Qualifiers EUGENIO LANGLEY MD Aug 23, 2021 01:37
[2021-08-23] MEDS ORDERED: CONTRAST GIVEN. MC PRN (01:45)
[2021-08-23 01:46] LABS: BASO % 1 % (0-3); EOS # 0.3 x10^3/uL (0.0-0.7); EOS % 4 % (0-3); HEMATOCRIT 34.5 % (36.0-47.0); HEMOGLOBIN 11.2 g/dL (12.0-15.5); LYMPH # 1.7 x10^3/uL (1.0-4.8); LYMPH % 23 % (24-48); MEAN CORPUSCULAR HEMOGLOBIN 28 pg (25-35); MEAN CORPUSCULAR HGB CONC 32 g/dL (31-37); MEAN CORPUSCULAR VOLUME 87 fL (79-100); MONO # 0.7 x10^3/uL (0.0-1.1); MONO % 9 % (0-9); NEUT # 4.6 x10^3uL (1.8-7.7); NEUT % 63 % (31-73); PLATELET COUNT 208 x10^3/uL (140-400); RED BLOOD COUNT 3.99 x10^6/uL (3.50-5.40); RED CELL DISTRIBUTION WIDTH 16.3 % (11.5-14.5); WHITE BLOOD COUNT 7.3 x10^3/uL (4.0-11.0)
--- NOTE | 2021-08-23 01:50 | RAD ---
CT head without contrast HISTORY: Code stroke. Right side vision loss. PQRS statement: CT scans at this facility use dose reduction including either automated exposure cont rol, iterative reconstructions, and /or weight based radiation dosing via mA and kV modification when appropriate to reduce radiation dose to as low as reasonably achievable. COMPARISON: CT head May 26, 2019 FINDINGS: Tiny cyst in the right basal ganglia image 15 stable. Calcified plaque cavernous carotid ar teries. No intracranial hemorrhage, mass, hydrocephalus or infarction. Calcified plaque left vertebra l artery. Right mastoidectomy. Orbits and skull base and calvarium intact. IMPRESSION: No acute abnormality. FOR INTERNAL CODING PURPOSES Critical result: Findings discussed with EUGENIO LANGLEY MD at 08/23/2021 1:44 AM. RESULT CODE: (C) Electronically signed by: Naga Martell MD (08/23/2021 1:48 AM) [facility]
[2021-08-23] MEDS ORDERED: IOHEXOL 350 MG/ML 100 ML VIAL. IV ONE (02:00)
[2021-08-23 02:10] LABS: CALCIUM 9.1 mg/dL (8.5-10.1); CREATININE 1.6 mg/dL (0.6-1.0); GFR 30.9; POTASSIUM 4.1 mmol/L (3.5-5.1)
[2021-08-23 02:16] LABS: ALBUMIN 3.4 g/dL (3.4-5.0); TOTAL BILIRUBIN 0.2 mg/dL (0.2-1.0); TOTAL PROTEIN 6.8 g/dL (6.4-8.2)
--- NOTE | 2021-08-23 02:17 | EKG ---
[address] [address] Test Date: 2021-08-23 Test Time: 02:04:48 Pat Name: JOCELYN BECKHAM Department: Room: Gender: F [employer]ch[employer]: : 1940 Requested By: EUGENIO LANGLEY Order Number: [id number] Reading MD: Sergey Olmedo Measurements Intervals Milmay Rate: 83 P: 90 MT: 166 QRS: 11 QRSD: 82 T: 37 QT: 370 QTc: 435 Interpretive Statements SINUS RHYTHM Electronically Signed On 08-25-2021 12:01:46 GYM MANAGER by Sergey Olmedo
[2021-08-23 02:18] VITALS: BP 137/67
--- NOTE | 2021-08-23 02:22 | RAD ---
CT angiography head and neck with contrast Stenosis calculations for CT, MR, and conventional angiography are based upon measurements of the dis eddie ICA diameter in accordance with the NASCET methodology. Stenosis calculations for carotid ultraso und studies are derived from validated velocity criteria which are known to correlate with the NASCET methodology. PQRS statement: CT scans at this facility use dose reduction including either automated exposure cont rol, iterative reconstructions, and /or weight based radiation dosing via mA and kV modification when appropriate to reduce radiation dose to as low as reasonably achievable. Contrast: 75 mL Omnipaque 350 intravenous contrast and 3-D MIP reconstructions of the arteries. HISTORY: Right-sided vision loss. Code stroke. CTA neck findings: No ostial stenosis of the vessels from the aortic arch with mild calcified plaquin g present. Left vertebral artery is dominant. Calcified plaque, particularly. No thrombus, stenosis o r occlusion of the vertebral arteries. Right carotid artery calcified plaque at the bifurcation contr ibutes to mild stenotic disease of 25% of the proximal ICA, no significant stenosis, thrombus or occl usion. Left carotid artery demonstrates moderate calcified plaque at the bifurcation without measurab le stenosis, no thrombus or occlusion. Cervical disc disease. CTA head findings: Patent posterior communicating arteries. Calcified plaque cavernous carotid arteri es and mild tortuosity of these vessels. Ophthalmic arteries and contrast enhancement. No thrombus, s ignificant stenosis, occlusion or aneurysm of the intracranial arteries. IMPRESSION: 1. No large vessel occlusion of the arteries of the head and neck. 2. Atherosclerotic plaquing without significant stenosis of the arteries of the head and neck as desc ribed above. FOR INTERNAL CODING PURPOSES Critical result: Findings discussed with EUGENIO LANGLEY MD at 08/23/2021 2:13 AM. RESULT CODE: (C) Electronically signed by: Naga Martell MD (08/23/2021 2:20 AM) [facility]
[2021-08-23 02:55] LABS: SEDIMENTATION RATE 60 (0-25)
== END 2021-08-23 02:52 | disposition home or self-care (01) ==
LOC: ER 01:09
DX: H54.61 Unqualified visual loss, right eye, normal vision left eye (principal); R94.4 Abnormal results of kidney function studies; I25.10 Atherosclerotic heart disease of native coronary artery without angina pectoris; E11.9 Type 2 diabetes mellitus without complications; I10 Essential (primary) hypertension; J45.909 Unspecified asthma, uncomplicated; M19.90 Unspecified osteoarthritis, unspecified site; Z88.5 Allergy status to narcotic agent; Z88.8 Allergy status to other drugs, medicaments and biological substances
CPT/HCPCS: 36415; 70450; 70496; 70498; 80048; 80053; 82947; 84484; 85025; 85651; 93005; 99285; Q9967

== ENCOUNTER → 2021-12-31 | Outpatient (CLI) | payer MEDICARE, OTHER ==
--- NOTE | 2022-01-02 08:24 | CARD ---
MR#: [id number] Date of Study: 12/31/2021 Ordering Physician: JEWEL BLANTON, Referring Physician: JEWEL BLANTON, Tech: Orlando Degroot [facility] APPROVED REPORT EXAM: Two-dimensional and M-mode echocardiogram with Doppler and color Doppler. Other Information Quality : FairHR: 82bpm Rhythm : NSR INDICATION Post Cardiac pacemaker Surgery/Intervention Pacemaker: RISK FACTORS Hypertension 2D DIMENSIONS IVSd1.1 (0.7-1.1cm)Aortic Root(2D)3.0 (2.0-3.7cm) LVDd4.8 (3.9-5.9cm)LVOT Diameter2.0 (1.8-2.4cm) PWd1.1 (0.7-1.1cm)LA Sdwmkb96 (18-58mL) LVDs2.9 (2.5-4.0cm)FS (%) 38.3 % SV72.1 mlLVEF(%)68.5 (>50%) Aortic Valve AoV Peak Scott.143.4cm/sAoV VTI27.9cm AO Peak GR.8.2mmHgLVOT Peak Scott.123.6cm/s LVOT VTI 21.49cmAO Mean GR.5mmHg JEANNIE (VMAX)2.21zp4QQH (VTI)2.52cm2 Mitral Valve MV E Phcgyptl72.2cm/sMV DECEL [id number] MV A Iezgcgtd113.4cm/sE/A Ratio0.8 Pulmonary Valve PV Peak Lyxncpqi683.9cm/sPV Peak Grad.6mmHg Tricuspid Valve TR P. Rczpqjdx936zn/sTR Peak Gr.20mmHg Pulmonary Vein S1 Edtjffys11.7cm/sD2 Hhcenpsa24.0cm/s LEFT VENTRICLE The left ventricle is normal size. There is normal left ventricular wall thickness. The left ventricu lar systolic function is normal and the ejection fraction is within normal range. EF 55% There is nor mal LV segmental wall motion. Transmitral Doppler flow pattern is Grade I-abnormal relaxation pattern . No left ventricle thrombus noted on this study. There is no ventricular septal defect visualized. T here is no left ventricular aneurysm. There is no mass noted in the left ventricle. RIGHT VENTRICLE The right ventricle is normal size. There is normal right ventricular wall thickness. Pacemaker lead noted in the right atrium and right ventricle. There is a pacemaker lead in the RA/RV. ATRIA The left atrium size is normal. The right atrium size is normal. The interatrial septum is intact wit h no evidence for an atrial septal defect or patent foramen ovale as noted on 2-D or Doppler imaging. AORTIC VALVE The aortic valve is normal in structure and function. Doppler and Color Flow revealed no significant aortic regurgitation. There is no significant aortic valvular stenosis. There is no aortic valvular v egetation. MITRAL VALVE The mitral valve is normal in structure and function. There is no evidence of mitral valve prolapse. There is no mitral valve stenosis. Doppler and Color-flow revealed trace mitral regurgitation. TRICUSPID VALVE The tricuspid valve is normal in structure and function. Doppler and Color Flow revealed trace tricus pid regurgitation. There is no tricuspid valve prolapse or vegetation. There is no tricuspid valve st enosis. PULMONIC VALVE Doppler and Color Flow revealed no pulmonic valvular regurgitation. There is no pulmonic valvular jeanie nosis. GREAT VESSELS The aortic root is normal in size. The ascending aorta is normal in size. The IVC is normal in size a nd collapses >50% with inspiration. PERICARDIAL EFFUSION There is no pleural effusion. There is no evidence of significant pericardial effusion. Critical Notification Critical Value: No <Conclusion> The left ventricular systolic function is normal and the ejection fraction is within normal range. EF 55% There is normal LV segmental wall motion. There is a pacemaker lead in the RA/RV. Signed by : Jewel Blanton, Electronically Approved : 01/02/2022 08:23:57
== END ==
LOC: ECHO 13:57
PROVIDERS: ATTEND Internal Medicine Cardiovascular Disease
DX: Z95.0 Presence of cardiac pacemaker (principal)
CPT/HCPCS: 93306